=== PATIENT | male | born 1935 | race Caucasian/White ===

== ENCOUNTER → 2017-04-18 | Outpatient (CLI) | payer OTHER ==
[2017-04-18 16:58] LABS: Basophils # (auto) 0.1 uL; Basophils % (auto) 0.9 % (0.0-2.0); Eosinophils # (auto) 0.3 uL; Eosinophils % (auto) 4.2 % (0.0-7.0); Hematocrit 51.6 % (41.0-53.0); Hemoglobin 17.3 g/dL (13.5-17.5); Lymphocytes # (auto) 1.1 uL; Mean Corpuscular Hemoglobin 29.3 pg (28.0-32.0); Mean Corpuscular Hgb Conc. 33.6 g/dL (32.0-36.0); Mean Platelet Volume 7.9 fL (6.9-10.8); Monocytes # (auto) 0.9 uL; Monocytes % (auto) 11.4 % (0.0-12.0); Neutrophils # (auto) 5.2 uL; Neutrophils % (auto) 68.5 % (37.0-80.0); Nucleated Red Blood Cells % 0.1 %; Platelet Count (auto) 173 10^3/uL (140-450); Red Cell Distribution Width 13.9 % (11.8-14.3); White Blood Cell 7.6 10^3/uL (4.4-10.8)
[2017-04-18 17:11] LABS: INR 0.97 (0.9-1.15); Partial Thromboplastin Time 27.5 sec (22.64-33.71); Prothrombin Time 10.6 sec (9.37-12.3)
[2017-04-18 17:21] LABS: Albumin 3.5 g/dL (3.4-5.0); BUN/Creatinine Ratio 18.7; Calcium 9.3 mg/dL (8.5-10.1); Potassium 4.4 mmol/L (3.5-5.1)
[2017-04-18 17:24] LABS: Bilirubin, Total 0.6 mg/dL (0.2-1.0); Total Protein 7.7 g/dL (6.4-8.2)
[2017-04-18 17:34] LABS: Urine Bilirubin Negative (Negative); Urine Blood 1+ /uL (Negative); Urine Color Yellow (Yellow); Urine Glucose Normal (Normal); Urine Ketone Negative (Negative); Urine Mucus FEW (None Seen); Urine Nitrite Negative (Negative); Urine RBC 40 /hpf (0 - 3); Urine Urobilinogen Normal (Negative); Urine WBC Clumps PRESENT /hpf (None Seen); Urine pH 5.5 (5.0-8.0)
== END | disposition home or self-care (01) ==
LOC: LAB 16:50
PROVIDERS: ATTEND Internal Medicine
DX: I10 Essential (primary) hypertension (principal); E11.9 Type 2 diabetes mellitus without complications
CPT/HCPCS: 36415; 80053; 81001; 83036; 85025; 85610; 85730

== ENCOUNTER → 2017-05-10 | Outpatient (CLI) | payer OTHER ==
[~2017-05-10] MED LIST: ASPI81CH43 PO; FURO40TA4 PO; GLIM4TAB42 PO; LISI10TA6 PO; METF-370 PO; METO-158 PO; POTA20TA53 PO; PREG50CA PO
[2017-05-10 11:17] LABS: Basophils # (auto) 0.1 uL; Basophils % (auto) 1.2 % (0.0-2.0); Eosinophils # (auto) 0.4 uL; Hematocrit 50.1 % (41.0-53.0); Hemoglobin 16.7 g/dL (13.5-17.5); Lymphocytes # (auto) 1.3 uL; Lymphocytes % (auto) 18.3 % (10.0-50.0); Mean Corpuscular Hemoglobin 28.8 pg (28.0-32.0); Mean Corpuscular Hgb Conc. 33.3 g/dL (32.0-36.0); Mean Corpuscular Volume 86.4 fL (80.0-100.0); Monocytes # (auto) 0.8 uL; Monocytes % (auto) 11.3 % (0.0-12.0); Neutrophils # (auto) 4.6 uL; Neutrophils % (auto) 64.2 % (37.0-80.0); Platelet Count (auto) 209 10^3/uL (140-450); Red Cell Distribution Width 14.1 % (11.8-14.3); White Blood Cell 7.1 10^3/uL (4.4-10.8)
[2017-05-10 11:22] LABS: Urine Blood 1+ /uL (Negative); Urine Specific Gravity 1.016 (1.001-1.035)
[2017-05-10 11:30] LABS: INR 0.98 (0.9-1.15); Partial Thromboplastin Time 27.1 sec (22.64-33.71); Prothrombin Time 10.7 sec (9.37-12.3)
[2017-05-10 11:55] LABS: Albumin 3.3 g/dL (3.4-5.0); BUN/Creatinine Ratio 24.7; Bilirubin, Total 0.9 mg/dL (0.2-1.0); Potassium 4.4 mmol/L (3.5-5.1); Total Protein 7.3 g/dL (6.4-8.2)
== END | disposition home or self-care (01) ==
LOC: LAB 10:40
PROVIDERS: ATTEND Specialist
DX: Z01.812 Encounter for preprocedural laboratory examination (principal); D68.311 Acquired hemophilia; H25.12 Age-related nuclear cataract, left eye
CPT/HCPCS: 36415; 80053; 81003; 85025; 85610; 85730

== ENCOUNTER 2017-08-14 05:18 | Inpatient (IN) | payer OTHER ==
[~2017-08-14] VITALS: Ht 182.9 cm; Wt 94.5 kg
[2017-08-14] MEDS ORDERED: cloNIDine HCL 0.1 MG TAB ONE (05:33)
[2017-08-14] MEDS ORDERED: cloNIDine HCL 0.1 MG TAB PO ONE (05:45)
[2017-08-14 07:19] LABS: Basophils # (auto) 0 uL; Basophils % (auto) 0.4 % (0.0-2.0); Eosinophils # (auto) 0.1 uL; Eosinophils % (auto) 0.5 % (0.0-7.0); Hematocrit 45.6 % (41.0-53.0); Hemoglobin 15.1 g/dL (13.5-17.5); Lymphocytes # (auto) 0.6 uL; Mean Corpuscular Hemoglobin 29.2 pg (28.0-32.0); Mean Corpuscular Hgb Conc. 33.1 g/dL (32.0-36.0); Mean Corpuscular Volume 88.3 fL (80.0-100.0); Monocytes % (auto) 7.9 % (0.0-12.0); Neutrophils # (auto) 10.5 uL; Neutrophils % (auto) 86.2 % (37.0-80.0); Platelet Count (auto) 171 10^3/uL (140-450); Red Blood Cells 5.17 10^6/uL (4.5-5.90); Red Cell Distribution Width 14.2 % (11.8-14.3); White Blood Cell 12.2 10^3/uL (4.4-10.8)
[2017-08-14 07:32] LABS: INR 0.95 (0.9-1.15); Partial Thromboplastin Time 25.2 sec (22.64-33.71); Prothrombin Time 10.4 sec (9.37-12.3)
[2017-08-14 07:40] LABS: Albumin 3.2 g/dL (3.4-5.0); Anion Gap 6 (5-15); Blood Urea Nitrogen 18 mg/dL (7-18); Calcium 8.8 mg/dL (8.5-10.1); Carbon Dioxide 28 mmol/L (21-32); Chloride 103 mmol/L (98-107); Potassium 4.4 mmol/L (3.5-5.1); Sodium 137 mmol/L (136-145)
[2017-08-14] MEDS ORDERED: LIDOCAINE 2% JELLY 11ml (GLYDO) ONE (07:41)
[2017-08-14 07:42] LABS: Alanine Aminotransferase 27 U/L (16-61); Aspartate Aminotransferase 23 U/L (15-37); BUN/Creatinine Ratio 18.8; Bilirubin, Total 0.6 mg/dL (0.2-1.0); GFR African American 97 mL/min; GFR Non-African American 80 mL/min; Total Protein 6.5 g/dL (6.4-8.2)
[2017-08-14 07:45] LABS: Alkaline Phosphatase 104 U/L (45-117)
[2017-08-14 07:51] LABS: Glucose 405 mg/dL (74-106)
[2017-08-14 08:39] LABS: Urine Bacteria MOD /hpf (None Seen); Urine Blood 3+ /uL (Negative); Urine Specific Gravity 1.022 (1.001-1.035); Urine WBC 119 /hpf (0 - 3); Urine WBC Clumps PRESENT /hpf (None Seen)
[2017-08-14] MEDS ORDERED: MORPHINE SULFATE 4 MG/ML SYR/VIAL IV ONE (09:00)
[2017-08-14] MEDS ORDERED: ONDANSETRON HCL 4 MG/2 ML VIAL IV ONE (09:00)
[2017-08-14] MEDS ORDERED: LIDOCAINE 2% JELLY 11ml (GLYDO) UR ONE (09:00)
[2017-08-14] MEDS: cefTRIAXone 1GM/10ml IVPUSH 10 ML IV SCH (10:42)
[2017-08-14] MEDS ORDERED: cloNIDine HCL 0.1 MG TAB PO PRN (10:45)
[2017-08-14] MEDS ORDERED: INSULIN LANTUS (GLARGINE) 1 /0.01ml (100units/ml) SC ONE (10:45)
[2017-08-14] MEDS ORDERED: NITROGLYCERIN 0.4 MG SL TAB SL PRN (10:45)
[2017-08-14] MEDS ORDERED: ACETAMINOPHEN 325 MG TAB PO PRN (10:45)
[2017-08-14] MEDS ORDERED: MORPHINE SULFATE 4 MG/ML SYR/VIAL IV PRN (10:45)
[2017-08-14] MEDS ORDERED: TEMAZEPAM 15 MG CAP PO PRN (10:45)
[2017-08-14] MEDS ORDERED: ONDANSETRON HCL 4 MG/2 ML VIAL IV PRN (10:45)
[2017-08-14] MEDS ORDERED: DOCUSATE SOD 100 MG CAP PO PRN (10:45)
[2017-08-14] MEDS ORDERED: DEXTROSE (50%) 50ML SYRG IV PRN (10:45)
[2017-08-14] MEDS: InsuLIN REG 1unit/0.01ml Soln (100units/ml) SC SCH ×3 (11:44→22:32)
[2017-08-14] MEDS: ACCU-CHEK COMFORT CURVE STRIP VI SCH ×3 (11:44→22:32)
[2017-08-14] MEDS: Boost Glucose Control 8 Ounces PO SCH ×2 (12:17→17:33)
[2017-08-14] MEDS: SODIUM CHLOR 0.9% PF (SALINE LOCK) 10ML VIAL/SYR IV SCH ×2 (14:09→22:30)
[2017-08-14] MEDS: TAMSULOSIN HYDROCHLORIDE 0.4 MG CAP PO SCH (17:33)
[2017-08-14] MEDS: glyBURIDE 5 MG TAB PO SCH (17:34)
[2017-08-14] MEDS: MORPHINE SULFATE 4 MG/ML SYR/VIAL IV PRN (20:11)
[2017-08-14 20:30] VITALS: BP 107/60
[2017-08-14 22:00] VITALS: BP 107/60
[2017-08-14] MEDS: ASCORBIC ACID 500 MG TAB PO SCH (22:31)
[2017-08-14] MEDS: FAMOTIDINE 20 MG TAB PO SCH (22:31)
[2017-08-14] MEDS: CARVEDILOL 3.125 MG TAB PO SCH (22:31)
[2017-08-14] MEDS: INSULIN LANTUS (GLARGINE) 1 /0.01ml (100units/ml) SC SCH (22:32)
[2017-08-15] MEDS: MORPHINE SULFATE 4 MG/ML SYR/VIAL IV PRN ×3 (00:25→21:19)
[2017-08-15 05:00] VITALS: BP 123/58
[2017-08-15] MEDS: SODIUM CHLOR 0.9% PF (SALINE LOCK) 10ML VIAL/SYR IV SCH ×3 (06:09→21:24)
[2017-08-15 06:52] LABS: Basophils # (auto) 0 uL; Basophils % (auto) 0.3 % (0.0-2.0); Eosinophils # (auto) 0.1 uL; Eosinophils % (auto) 1.2 % (0.0-7.0); Hematocrit 41.9 % (41.0-53.0); Hemoglobin 14.1 g/dL (13.5-17.5); Lymphocytes # (auto) 0.8 uL; Mean Corpuscular Hemoglobin 30.2 pg (28.0-32.0); Mean Corpuscular Hgb Conc. 33.7 g/dL (32.0-36.0); Mean Corpuscular Volume 89.6 fL (80.0-100.0); Monocytes % (auto) 12.4 % (0.0-12.0); Neutrophils # (auto) 6.3 uL; Neutrophils % (auto) 76.1 % (37.0-80.0); Nucleated Red Blood Cells % 0.1 %; Platelet Count (auto) 170 10^3/uL (140-450); Red Blood Cells 4.67 10^6/uL (4.5-5.90); Red Cell Distribution Width 14.3 % (11.8-14.3); White Blood Cell 8.3 10^3/uL (4.4-10.8)
[2017-08-15] MEDS: InsuLIN REG 1unit/0.01ml Soln (100units/ml) SC SCH ×4 (07:00→22:00)
[2017-08-15] MEDS: ACCU-CHEK COMFORT CURVE STRIP VI SCH ×4 (07:00→22:00)
[2017-08-15] MEDS: glyBURIDE 5 MG TAB PO SCH ×2 (07:00→18:00)
[2017-08-15] MEDS: INSULIN LANTUS (GLARGINE) 1 /0.01ml (100units/ml) SC SCH ×2 (07:00→22:00)
[2017-08-15 07:18] LABS: Albumin 3.1 g/dL (3.4-5.0); BUN/Creatinine Ratio 23.2; Bilirubin, Total 0.7 mg/dL (0.2-1.0); Calcium 8.2 mg/dL (8.5-10.1); Potassium 3.9 mmol/L (3.5-5.1); Total Protein 6.5 g/dL (6.4-8.2)
[2017-08-15 08:00] VITALS: BP 105/54
[2017-08-15] MEDS: Boost Glucose Control 8 Ounces PO SCH ×3 (08:00→18:00)
[2017-08-15] MEDS: cefTRIAXone 1GM/10ml IVPUSH 10 ML IV SCH (09:43)
[2017-08-15] MEDS: CARVEDILOL 3.125 MG TAB PO SCH ×3 (10:00→22:00)
[2017-08-15] MEDS: ZINC SULFATE 220 MG CAP PO SCH (10:09)
[2017-08-15] MEDS: FAMOTIDINE 20 MG TAB PO SCH ×3 (10:10→22:00)
[2017-08-15] MEDS: ASCORBIC ACID 500 MG TAB PO SCH ×3 (10:10→22:00)
[2017-08-15] MEDS: MULTIPLE VITAMIN TAB PO SCH (10:10)
[2017-08-15] MEDS: SODIUM CHLORIDE 0.9% 1,000 ML IV SCH ×2 (11:15→21:23)
[2017-08-15 12:00] VITALS: BP 138/65
[2017-08-15] MEDS: AMOXICILLIN/CLAVUL 875 MG TAB PO SCH ×3 (13:17→22:00)
[2017-08-15] MEDS ORDERED: VANCOMYCIN 1GM/250ML 250 ML IV SCH ×2 (15:00→21:00)
[2017-08-15 17:00] VITALS: BP 140/76
[2017-08-15] MEDS: TAMSULOSIN HYDROCHLORIDE 0.4 MG CAP PO SCH (18:00)
[2017-08-15] MEDS ORDERED: ASPI81CH43 PO (20:11)
[2017-08-15] MEDS ORDERED: GLIM4TAB42 PO (20:11)
[2017-08-15] MEDS ORDERED: POTA20TA53 PO (20:11)
[2017-08-15] MEDS ORDERED: METF-370 PO (20:11)
[2017-08-15] MEDS ORDERED: LISI10TA6 PO (20:11)
[2017-08-15] MEDS ORDERED: FURO40TA4 PO (20:11)
[2017-08-15] MEDS ORDERED: PREG50CA PO (20:11)
[2017-08-15] MEDS ORDERED: METO-158 PO (20:11)
[2017-08-15] MEDS: HYDROcodone-ACET 5/325MG TAB PO PRN (20:12)
[2017-08-15 22:00] VITALS: BP 108/65
[2017-08-15] MEDS ORDERED: LORazepam 2MG/ML-1ML VIAL IV ONE (22:30)
[2017-08-15] MEDS ORDERED: diphenhdrAMINE HCL 50 MG/1 ML VL IV ONE (22:30)
[2017-08-16 06:20] VITALS: BP 124/63
[2017-08-16] MEDS: SODIUM CHLOR 0.9% PF (SALINE LOCK) 10ML VIAL/SYR IV SCH ×3 (06:45→22:19)
[2017-08-16] MEDS: InsuLIN REG 1unit/0.01ml Soln (100units/ml) SC SCH ×4 (06:46→22:46)
[2017-08-16] MEDS: INSULIN LANTUS (GLARGINE) 1 /0.01ml (100units/ml) SC SCH ×2 (06:46→22:00)
[2017-08-16] MEDS: ACCU-CHEK COMFORT CURVE STRIP VI SCH ×4 (06:46→22:00)
[2017-08-16] MEDS: glyBURIDE 5 MG TAB PO SCH ×2 (06:46→18:00)
[2017-08-16 07:07] LABS: Calcium 8.8 mg/dL (8.5-10.1); Potassium 3.8 mmol/L (3.5-5.1)
[2017-08-16 07:10] LABS: BUN/Creatinine Ratio 30.8
[2017-08-16] MEDS: Boost Glucose Control 8 Ounces PO SCH ×3 (08:00→18:00)
[2017-08-16 09:00] VITALS: BP 115/59
[2017-08-16] MEDS ORDERED: MIDAZOLAM HCL 1MG/1ML-2 ML VIAL ONE ×2 (09:19→13:19)
[2017-08-16] MEDS ORDERED: LIDOCAINE W/ EPINEPHRINE 2% INJ 20ML VIAL ONE (09:19)
[2017-08-16] MEDS ORDERED: ceFAZolin 1GM/100ML 50 ML IV ONE ×2 (09:26→11:41)
[2017-08-16] MEDS ORDERED: BUPIVACAINE 0.25% INJ 50ML VIAL ONE (09:32)
[2017-08-16] MEDS: ZINC SULFATE 220 MG CAP PO SCH (10:00)
[2017-08-16] MEDS: AMOXICILLIN/CLAVUL 875 MG TAB PO SCH ×2 (10:00→22:19)
[2017-08-16] MEDS: CARVEDILOL 3.125 MG TAB PO SCH ×2 (10:00→22:19)
[2017-08-16] MEDS: FAMOTIDINE 20 MG TAB PO SCH ×2 (10:00→22:19)
[2017-08-16] MEDS: ASCORBIC ACID 500 MG TAB PO SCH ×2 (10:00→22:17)
[2017-08-16] MEDS: MULTIPLE VITAMIN TAB PO SCH (10:00)
[2017-08-16] MEDS ORDERED: SUCCINYLCHOLINE CHLORIDE 20 MG/ML 10ML VIAL IV ONE (10:46)
[2017-08-16] MEDS ORDERED: ROCURONIUM 10MG/ML 10ML VIAL IV ONE (10:49)
[2017-08-16 11:02] LABS: Basophils # (auto) 0.1 uL; Basophils % (auto) 0.9 % (0.0-2.0); Eosinophils # (auto) 0.2 uL; Eosinophils % (auto) 1.9 % (0.0-7.0); Hematocrit 40.1 % (41.0-53.0); Hemoglobin 13.2 g/dL (13.5-17.5); Lymphocytes # (auto) 0.8 uL; Lymphocytes % (auto) 9.9 % (10.0-50.0); Mean Corpuscular Hemoglobin 28.6 pg (28.0-32.0); Mean Corpuscular Volume 86.8 fL (80.0-100.0); Monocytes % (auto) 12.3 % (0.0-12.0); Neutrophils # (auto) 6.3 uL; Platelet Count (auto) 142 10^3/uL (140-450); Red Blood Cells 4.62 10^6/uL (4.5-5.90); Red Cell Distribution Width 14.2 % (11.8-14.3); White Blood Cell 8.4 10^3/uL (4.4-10.8)
[2017-08-16] MEDS ORDERED: fentaNYL CITRATE 100 MCG/2 ML VL ONE ×2 (11:34→13:14)
[2017-08-16] MEDS ORDERED: NALOXONE HCL 0.4 MG/ML VIAL IV PRN (11:45)
[2017-08-16] MEDS ORDERED: MORPHINE SULFATE 4 MG/ML SYR/VIAL IV PRN (11:45)
[2017-08-16] MEDS ORDERED: ACCU-CHEK COMFORT CURVE STRIP VI ONE (11:45)
[2017-08-16] MEDS ORDERED: ONDANSETRON HCL 4 MG/2 ML VIAL IV ONE (11:45)
[2017-08-16] MEDS ORDERED: hydrALAZINE HCL 20 MG/ML VL IV PRN (11:45)
[2017-08-16] MEDS: fentaNYL CITRATE 100 MCG/2 ML VL IV PRN ×4 (13:17→14:14)
[2017-08-16] MEDS: MIDAZOLAM HCL 1MG/1ML-2 ML VIAL IV ONE ×4 (13:20→14:15)
[2017-08-16] MEDS: LORazepam 2MG/ML-1ML VIAL IV PRN (15:14)
[2017-08-16] MEDS: VANCOMYCIN 1GM/250ML 250 ML IV SCH (15:48)
[2017-08-16] MEDS: SODIUM CHLORIDE 0.9% 1,000 ML IV SCH ×2 (15:49→17:15)
[2017-08-16 17:00] VITALS: BP 151/69
[2017-08-16] MEDS: TAMSULOSIN HYDROCHLORIDE 0.4 MG CAP PO SCH (18:00)
[2017-08-16 22:19] VITALS: BP 138/73
[2017-08-17] MEDS: SODIUM CHLORIDE 0.9% 1,000 ML IV SCH ×3 (04:02→23:15)
[2017-08-17] MEDS: VANCOMYCIN 1GM/250ML 250 ML IV SCH (04:02)
[2017-08-17 05:14] VITALS: BP 132/68
[2017-08-17] MEDS: SODIUM CHLOR 0.9% PF (SALINE LOCK) 10ML VIAL/SYR IV SCH ×3 (05:32→22:21)
[2017-08-17 06:23] LABS: Basophils # (auto) 0 uL; Basophils % (auto) 0.3 % (0.0-2.0); Eosinophils # (auto) 0.1 uL; Eosinophils % (auto) 1.5 % (0.0-7.0); Hematocrit 37.4 % (41.0-53.0); Hemoglobin 12.7 g/dL (13.5-17.5); Lymphocytes # (auto) 0.7 uL; Lymphocytes % (auto) 8.6 % (10.0-50.0); Mean Corpuscular Hemoglobin 30.2 pg (28.0-32.0); Mean Corpuscular Volume 88.8 fL (80.0-100.0); Monocytes # (auto) 1.2 uL; Monocytes % (auto) 15.4 % (0.0-12.0); Neutrophils # (auto) 5.8 uL; Neutrophils % (auto) 74.2 % (37.0-80.0); Nucleated Red Blood Cells % 0.1 %; Platelet Count (auto) 198 10^3/uL (140-450); Red Blood Cells 4.21 10^6/uL (4.5-5.90); Red Cell Distribution Width 14.1 % (11.8-14.3); White Blood Cell 7.8 10^3/uL (4.4-10.8)
[2017-08-17] MEDS: ACCU-CHEK COMFORT CURVE STRIP VI SCH ×4 (06:23→22:17)
[2017-08-17] MEDS: glyBURIDE 5 MG TAB PO SCH ×2 (06:23→17:31)
[2017-08-17] MEDS: InsuLIN REG 1unit/0.01ml Soln (100units/ml) SC SCH ×4 (06:23→22:20)
[2017-08-17] MEDS: INSULIN LANTUS (GLARGINE) 1 /0.01ml (100units/ml) SC SCH (06:23)
[2017-08-17 06:49] LABS: BUN/Creatinine Ratio 29.7; Calcium 8.4 mg/dL (8.5-10.1); Potassium 3.8 mmol/L (3.5-5.1)
[2017-08-17 08:00] VITALS: BP 135/66
[2017-08-17] MEDS: Boost Glucose Control 8 Ounces PO SCH ×3 (08:00→18:42)
[2017-08-17 08:08] VITALS: BP 135/66
[2017-08-17] MEDS: ZINC SULFATE 220 MG CAP PO SCH (10:56)
[2017-08-17] MEDS: ASCORBIC ACID 500 MG TAB PO SCH ×2 (10:56→22:18)
[2017-08-17] MEDS: FAMOTIDINE 20 MG TAB PO SCH ×2 (10:57→22:19)
[2017-08-17] MEDS: ENOXAPARIN SOD 40 MG/0.4 ML SYRINGE SC SCH (10:57)
[2017-08-17] MEDS: MULTIPLE VITAMIN TAB PO SCH (10:57)
[2017-08-17] MEDS: CARVEDILOL 3.125 MG TAB PO SCH ×2 (10:58→22:19)
[2017-08-17] MEDS: ceFAZolin 1GM/100ML 50 ML IV SCH ×2 (12:12→17:30)
[2017-08-17 13:20] VITALS: BP 140/67
[2017-08-17] MEDS: HYDROcodone-ACET 5/325MG TAB PO PRN ×2 (14:27→20:16)
[2017-08-17] MEDS: TAMSULOSIN HYDROCHLORIDE 0.4 MG CAP PO SCH (17:30)
[2017-08-17 17:44] VITALS: BP 147/75
[2017-08-17 22:00] VITALS: BP 153/73
[2017-08-17] MEDS ORDERED: INSULIN LANTUS (GLARGINE) 1 /0.01ml (100units/ml) SC SCH (22:00)
[2017-08-18] MEDS: ceFAZolin 1GM/100ML 50 ML IV SCH ×4 (00:16→18:06)
[2017-08-18] MEDS: HYDROcodone-ACET 5/325MG TAB PO PRN ×3 (03:26→20:25)
[2017-08-18 05:00] VITALS: BP 146/76
[2017-08-18] MEDS: glyBURIDE 5 MG TAB PO SCH ×2 (06:25→18:07)
[2017-08-18] MEDS: SODIUM CHLOR 0.9% PF (SALINE LOCK) 10ML VIAL/SYR IV SCH ×3 (06:25→22:05)
[2017-08-18] MEDS: ACCU-CHEK COMFORT CURVE STRIP VI SCH ×4 (06:26→22:23)
[2017-08-18] MEDS: InsuLIN REG 1unit/0.01ml Soln (100units/ml) SC SCH ×3 (06:26→22:23)
[2017-08-18 06:53] LABS: Potassium 3.9 mmol/L (3.5-5.1)
[2017-08-18 06:54] LABS: Basophils # (auto) 0.1 uL; Basophils % (auto) 0.9 % (0.0-2.0); Eosinophils # (auto) 0.4 uL; Eosinophils % (auto) 4.2 % (0.0-7.0); Hematocrit 34.7 % (41.0-53.0); Hemoglobin 11.6 g/dL (13.5-17.5); Lymphocytes # (auto) 0.7 uL; Lymphocytes % (auto) 8.6 % (10.0-50.0); Mean Corpuscular Hemoglobin 28.9 pg (28.0-32.0); Mean Corpuscular Hgb Conc. 33.4 g/dL (32.0-36.0); Mean Corpuscular Volume 86.6 fL (80.0-100.0); Monocytes # (auto) 1.4 uL; Monocytes % (auto) 16.7 % (0.0-12.0); Neutrophils # (auto) 5.8 uL; Neutrophils % (auto) 69.6 % (37.0-80.0); Nucleated Red Blood Cells % 0.1 %; Platelet Count (auto) 197 10^3/uL (140-450); Red Blood Cells 4.01 10^6/uL (4.5-5.90); Red Cell Distribution Width 13.8 % (11.8-14.3); White Blood Cell 8.3 10^3/uL (4.4-10.8)
[2017-08-18 06:59] LABS: BUN/Creatinine Ratio 37.3
[2017-08-18] MEDS: Boost Glucose Control 8 Ounces PO SCH ×3 (08:49→18:06)
[2017-08-18] MEDS: ENOXAPARIN SOD 40 MG/0.4 ML SYRINGE SC SCH (09:10)
[2017-08-18] MEDS: FAMOTIDINE 20 MG TAB PO SCH ×2 (09:10→21:59)
[2017-08-18] MEDS: MULTIPLE VITAMIN TAB PO SCH (09:11)
[2017-08-18] MEDS: ZINC SULFATE 220 MG CAP PO SCH (09:11)
[2017-08-18] MEDS: ASCORBIC ACID 500 MG TAB PO SCH ×2 (09:11→21:59)
[2017-08-18] MEDS: CARVEDILOL 3.125 MG TAB PO SCH ×2 (09:15→21:58)
[2017-08-18] MEDS: SODIUM CHLORIDE 0.9% 1,000 ML IV SCH ×2 (12:34→19:15)
[2017-08-18] MEDS ORDERED: DEXTROSE (50%) 50ML SYRG IV ONE (12:45)
[2017-08-18] MEDS ORDERED: ceFAZolin 1GM/100ML 50 ML IV SCH (18:00)
[2017-08-18] MEDS: TAMSULOSIN HYDROCHLORIDE 0.4 MG CAP PO SCH (18:06)
[2017-08-18 21:30] VITALS: BP 150/77
[2017-08-18] MEDS ORDERED: INSULIN LANTUS (GLARGINE) 1 /0.01ml (100units/ml) SC SCH (22:00)
[2017-08-19 05:00] VITALS: BP 166/86
[2017-08-19] MEDS: SODIUM CHLORIDE 0.9% 1,000 ML IV SCH ×2 (05:15→15:56)
[2017-08-19] MEDS: SODIUM CHLOR 0.9% PF (SALINE LOCK) 10ML VIAL/SYR IV SCH ×3 (06:00→22:25)
[2017-08-19] MEDS: ceFAZolin 1GM/100ML 50 ML IV SCH ×4 (06:00→18:12)
[2017-08-19] MEDS: glyBURIDE 5 MG TAB PO SCH ×2 (06:38→18:00)
[2017-08-19] MEDS: ACCU-CHEK COMFORT CURVE STRIP VI SCH ×4 (06:38→22:27)
[2017-08-19] MEDS: InsuLIN REG 1unit/0.01ml Soln (100units/ml) SC SCH ×4 (06:38→22:00)
[2017-08-19 07:48] LABS: Basophils # (auto) 0.1 uL; Basophils % (auto) 0.7 % (0.0-2.0); Eosinophils # (auto) 0.2 uL; Eosinophils % (auto) 3.1 % (0.0-7.0); Hemoglobin 11.7 g/dL (13.5-17.5); Lymphocytes # (auto) 0.7 uL; Lymphocytes % (auto) 8.6 % (10.0-50.0); Mean Corpuscular Hemoglobin 29.7 pg (28.0-32.0); Mean Corpuscular Hgb Conc. 33.4 g/dL (32.0-36.0); Monocytes # (auto) 1.1 uL; Monocytes % (auto) 14.8 % (0.0-12.0); Neutrophils # (auto) 5.6 uL; Neutrophils % (auto) 72.8 % (37.0-80.0); Nucleated Red Blood Cells % 0.1 %; Platelet Count (auto) 259 10^3/uL (140-450); Red Blood Cells 3.94 10^6/uL (4.5-5.90); Red Cell Distribution Width 13.8 % (11.8-14.3); White Blood Cell 7.6 10^3/uL (4.4-10.8)
[2017-08-19 07:51] VITALS: BP 164/79
[2017-08-19 08:05] LABS: BUN/Creatinine Ratio 25.9; Calcium 8.5 mg/dL (8.5-10.1); Potassium 3.7 mmol/L (3.5-5.1)
[2017-08-19] MEDS: Boost Glucose Control 8 Ounces PO SCH ×3 (08:33→18:00)
[2017-08-19] MEDS: ENOXAPARIN SOD 40 MG/0.4 ML SYRINGE SC SCH (09:52)
[2017-08-19] MEDS: FAMOTIDINE 20 MG TAB PO SCH ×2 (09:52→22:26)
[2017-08-19] MEDS: MULTIPLE VITAMIN TAB PO SCH (09:52)
[2017-08-19] MEDS: PREGABALIN 25 MG CAP PO SCH ×2 (09:52→22:25)
[2017-08-19] MEDS: ZINC SULFATE 220 MG CAP PO SCH (09:52)
[2017-08-19] MEDS: ASPirin-EC 81 mg tab PO SCH (09:52)
[2017-08-19] MEDS: ASCORBIC ACID 500 MG TAB PO SCH ×2 (09:53→22:26)
[2017-08-19] MEDS ORDERED: LISINOPRIL 10 MG TAB PO SCH (10:00)
[2017-08-19] MEDS ORDERED: METOPROLOL SUCCINATE XL 50 MG TAB PO SCH (10:00)
[2017-08-19] MEDS: DEXTROSE (50%) 50ML SYRG IV PRN ×2 (12:53→18:24)
[2017-08-19 13:00] VITALS: BP 150/86
[2017-08-19 17:00] VITALS: BP 158/66
[2017-08-19] MEDS ORDERED: metFORMIN HYDROCHLORIDE 500 MG TAB PO SCH (18:00)
[2017-08-19] MEDS: TAMSULOSIN HYDROCHLORIDE 0.4 MG CAP PO SCH (18:00)
[2017-08-19] MEDS ORDERED: MORPHINE SULFATE 8mg/ml INJ SDV IV PRN ×2 (22:00)
[2017-08-20] VITALS (47 sets, daily range): BP systolic 95–187; BP diastolic 43–99
[2017-08-20] MEDS: SODIUM CHLORIDE 0.9% 1,000 ML IV SCH ×3 (01:15→19:29)
[2017-08-20] MEDS ORDERED: ETOMIDATE (2MG/ML) 20ML VIAL IV ONE (05:22)
[2017-08-20] MEDS ORDERED: SUCCINYLCHOLINE CHLORIDE 20 MG/ML 10ML VIAL IV ONE (05:23)
[2017-08-20] MEDS ORDERED: LABETALOL HCL 5 MG/ML ML 20ML VIAL IV ONE (05:45)
[2017-08-20] MEDS: SODIUM CHLOR 0.9% PF (SALINE LOCK) 10ML VIAL/SYR IV SCH ×3 (06:00→21:57)
[2017-08-20 06:07] LABS: Basophils # (auto) 0.1 uL; Basophils % (auto) 0.5 % (0.0-2.0); Eosinophils # (auto) 0.1 uL; Eosinophils % (auto) 0.5 % (0.0-7.0); Hematocrit 32.4 % (41.0-53.0); Hemoglobin 10.7 g/dL (13.5-17.5); Lymphocytes # (auto) 1.4 uL; Lymphocytes % (auto) 12.2 % (10.0-50.0); Mean Corpuscular Hemoglobin 29.7 pg (28.0-32.0); Mean Corpuscular Hgb Conc. 33.1 g/dL (32.0-36.0); Mean Corpuscular Volume 89.6 fL (80.0-100.0); Monocytes # (auto) 1.5 uL; Monocytes % (auto) 13.1 % (0.0-12.0); Neutrophils # (auto) 8.7 uL; Neutrophils % (auto) 73.7 % (37.0-80.0); Nucleated Red Blood Cells % 0.1 %; Platelet Count (auto) 229 10^3/uL (140-450); Red Blood Cells 3.61 10^6/uL (4.5-5.90); White Blood Cell 11.8 10^3/uL (4.4-10.8)
[2017-08-20] MEDS ORDERED: NOREPINEPHRINE 16 MG/500ML KIT 500 ML IV ONE (06:11)
[2017-08-20] MEDS: NOREPINEPHRINE 16 MG/500ML KIT 500 ML IV SCH (06:25)
[2017-08-20 06:28] LABS: Albumin 2.3 g/dL (3.4-5.0); BUN/Creatinine Ratio 20.8; Calcium 9.4 mg/dL (8.5-10.1); Potassium 3.8 mmol/L (3.5-5.1)
[2017-08-20 06:31] LABS: Bilirubin, Total 0.7 mg/dL (0.2-1.0); Total Protein 5.8 g/dL (6.4-8.2)
[2017-08-20] MEDS: ceFAZolin 1GM/100ML 50 ML IV SCH ×5 (06:48→23:41)
[2017-08-20] MEDS ORDERED: PROPOFOL 100 ML IV ONE ×3 (06:54→16:09)
[2017-08-20] MEDS: InsuLIN REG 1unit/0.01ml Soln (100units/ml) SC SCH ×4 (07:00→21:59)
[2017-08-20] MEDS: ACCU-CHEK COMFORT CURVE STRIP VI SCH ×4 (07:00→21:57)
[2017-08-20] MEDS: Boost Glucose Control 8 Ounces PO SCH ×3 (08:00→18:00)
[2017-08-20] MEDS: LEVOFLOXACIN 750MG 150 ML IV SCH (09:10)
[2017-08-20] MEDS: ASPirin-EC 81 mg tab PO SCH (11:50)
[2017-08-20] MEDS: MULTIPLE VITAMIN TAB PO SCH (11:50)
[2017-08-20] MEDS: ASCORBIC ACID 500 MG TAB PO SCH ×2 (11:51→21:55)
[2017-08-20] MEDS: PREGABALIN 25 MG CAP PO SCH ×2 (11:51→21:54)
[2017-08-20] MEDS: ENOXAPARIN SOD 40 MG/0.4 ML SYRINGE SC SCH (11:53)
[2017-08-20] MEDS: METOPROLOL TARTRATE 25 MG TAB PO SCH ×2 (11:57→21:55)
[2017-08-20] MEDS: ZINC SULFATE 220 MG CAP PO SCH (12:04)
[2017-08-20] MEDS: FAMOTIDINE 20 MG TAB PO SCH ×2 (12:04→21:54)
[2017-08-20] MEDS: PROPOFOL 100 ML IV SCH ×2 (16:36→20:38)
[2017-08-20] MEDS ORDERED: AMIODARONE HCL (50 MG/ ML) 3 ML VIAL IV ONE (16:50)
[2017-08-20] MEDS ORDERED: EPINEPHrine HCL 1 MG/10 ML SYRG IV ONE (16:50)
[2017-08-20] MEDS ORDERED: SODIUM BICARBONATE 8.4% INJ 50ML SYRINGE IV ONE (16:50)
[2017-08-20] MEDS ORDERED: CALCIUM CHLOR(10%) 100MG/ML 10ML SYRINGE IV ONE (16:50)
[2017-08-20] MEDS: TAMSULOSIN HYDROCHLORIDE 0.4 MG CAP PO SCH (19:28)
[2017-08-21] VITALS (101 sets, daily range): BP systolic 89–150; BP diastolic 37–80
[2017-08-21] MEDS: PROPOFOL 100 ML IV SCH ×5 (00:48→22:03)
[2017-08-21 04:50] LABS: BUN/Creatinine Ratio 22.8; Calcium 7.6 mg/dL (8.5-10.1); Potassium 3.6 mmol/L (3.5-5.1)
[2017-08-21 04:52] LABS: Basophils # (auto) 0 uL; Eosinophils # (auto) 0.2 uL; Lymphocytes # (auto) 0.7 uL; Monocytes # (auto) 1.2 uL; Monocytes % (auto) 15.6 % (0.0-12.0); Neutrophils # (auto) 5.7 uL; Nucleated Red Blood Cells % 0.1 %; Red Cell Distribution Width 13.9 % (11.8-14.3); White Blood Cell 7.9 10^3/uL (4.4-10.8)
[2017-08-21 04:55] LABS: Basophils % (auto) 0.6 % (0.0-2.0); Eosinophils % (auto) 2.1 % (0.0-7.0); Hemoglobin 9.4 g/dL (13.5-17.5); Lymphocytes % (auto) 8.7 % (10.0-50.0); Mean Corpuscular Hemoglobin 33.3 pg (28.0-32.0); Mean Corpuscular Hgb Conc. 36.1 g/dL (32.0-36.0); Mean Corpuscular Volume 92.4 fL (80.0-100.0); Platelet Count (auto) 210 10^3/uL (140-450); Red Blood Cells 2.82 10^6/uL (4.5-5.90)
[2017-08-21] MEDS: NOREPINEPHRINE 16 MG/500ML KIT 500 ML IV SCH (06:15)
[2017-08-21] MEDS: SODIUM CHLOR 0.9% PF (SALINE LOCK) 10ML VIAL/SYR IV SCH ×3 (06:26→22:04)
[2017-08-21] MEDS: ceFAZolin 1GM/100ML 50 ML IV SCH ×3 (06:26→17:41)
[2017-08-21] MEDS: ACCU-CHEK COMFORT CURVE STRIP VI SCH ×4 (06:26→22:05)
[2017-08-21] MEDS: InsuLIN REG 1unit/0.01ml Soln (100units/ml) SC SCH ×4 (06:27→22:25)
[2017-08-21] MEDS: LEVOFLOXACIN 750MG 150 ML IV SCH (07:29)
[2017-08-21] MEDS: D5W/SOD CHLO 0.9% 1,000 ML IV SCH ×2 (07:50→22:03)
[2017-08-21] MEDS: Boost Glucose Control 8 Ounces PO SCH (08:20)
[2017-08-21] MEDS: ASCORBIC ACID 500 MG TAB PO SCH ×2 (09:52→22:04)
[2017-08-21] MEDS: PREGABALIN 25 MG CAP PO SCH ×2 (09:53→22:04)
[2017-08-21] MEDS: ZINC SULFATE 220 MG CAP PO SCH (09:53)
[2017-08-21] MEDS: METOPROLOL TARTRATE 25 MG TAB PO SCH ×2 (09:54→22:00)
[2017-08-21] MEDS: MULTIPLE VITAMIN TAB PO SCH (09:54)
[2017-08-21] MEDS: ENOXAPARIN SOD 40 MG/0.4 ML SYRINGE SC SCH (09:55)
[2017-08-21] MEDS: FAMOTIDINE 20 MG TAB PO SCH ×2 (09:56→22:04)
[2017-08-21] MEDS: ASPirin-EC 81 mg tab PO SCH (09:56)
[2017-08-21] MEDS ORDERED: Diabetisource AC 1 Liter GT SCH (11:00)
[2017-08-21] MEDS: TAMSULOSIN HYDROCHLORIDE 0.4 MG CAP PO SCH (17:57)
[2017-08-22] VITALS (75 sets, daily range): BP systolic 111–155; BP diastolic 45–96
[2017-08-22] MEDS: ceFAZolin 1GM/100ML 50 ML IV SCH ×4 (00:29→17:52)
[2017-08-22] MEDS: PROPOFOL 100 ML IV SCH ×3 (03:35→21:01)
[2017-08-22 03:58] LABS: Basophils # (auto) 0.1 uL; Basophils % (auto) 0.6 % (0.0-2.0); Eosinophils # (auto) 0.4 uL; Eosinophils % (auto) 4.6 % (0.0-7.0); Hematocrit 28.1 % (41.0-53.0); Hemoglobin 9.3 g/dL (13.5-17.5); Lymphocytes # (auto) 0.9 uL; Lymphocytes % (auto) 10.7 % (10.0-50.0); Mean Corpuscular Hemoglobin 29.4 pg (28.0-32.0); Mean Corpuscular Hgb Conc. 33.3 g/dL (32.0-36.0); Mean Corpuscular Volume 88.1 fL (80.0-100.0); Monocytes # (auto) 1.5 uL; Neutrophils # (auto) 5.8 uL; Neutrophils % (auto) 67.1 % (37.0-80.0); Platelet Count (auto) 255 10^3/uL (140-450); Red Blood Cells 3.18 10^6/uL (4.5-5.90); Red Cell Distribution Width 14.3 % (11.8-14.3); White Blood Cell 8.6 10^3/uL (4.4-10.8)
[2017-08-22 04:20] LABS: BUN/Creatinine Ratio 19.3; Calcium 7.7 mg/dL (8.5-10.1); Potassium 3.5 mmol/L (3.5-5.1)
[2017-08-22] MEDS: SODIUM CHLOR 0.9% PF (SALINE LOCK) 10ML VIAL/SYR IV SCH ×3 (05:57→22:15)
[2017-08-22] MEDS: NOREPINEPHRINE 16 MG/500ML KIT 500 ML IV SCH (06:15)
[2017-08-22] MEDS: LEVOFLOXACIN 750MG 150 ML IV SCH (06:34)
[2017-08-22] MEDS: ACCU-CHEK COMFORT CURVE STRIP VI SCH ×4 (06:34→22:15)
[2017-08-22] MEDS: InsuLIN REG 1unit/0.01ml Soln (100units/ml) SC SCH ×4 (06:34→22:39)
[2017-08-22] MEDS: FAMOTIDINE 20 MG TAB PO SCH ×2 (11:20→22:15)
[2017-08-22] MEDS: ASPirin-EC 81 mg tab PO SCH (11:20)
[2017-08-22] MEDS: ZINC SULFATE 220 MG CAP PO SCH (11:20)
[2017-08-22] MEDS: PREGABALIN 25 MG CAP PO SCH ×2 (11:21→22:14)
[2017-08-22] MEDS: ASCORBIC ACID 500 MG TAB PO SCH ×2 (11:21→22:15)
[2017-08-22] MEDS: MULTIPLE VITAMIN TAB PO SCH (11:21)
[2017-08-22] MEDS: ENOXAPARIN SOD 30 MG/0.3 ML SYRINGE SC SCH (11:35)
[2017-08-22] MEDS: METOPROLOL TARTRATE 25 MG TAB PO SCH ×2 (11:35→22:09)
[2017-08-22] MEDS: D5W/SOD CHLO 0.9% 1,000 ML IV SCH ×2 (12:00→18:16)
[2017-08-22 14:21] LABS: Creatinine, Urine 101 mg/dL (30.0-125.0); Sodium Urine 29 mmol/L (40-220)
[2017-08-22] MEDS: TAMSULOSIN HYDROCHLORIDE 0.4 MG CAP PO SCH (17:52)
[2017-08-23] VITALS (76 sets, daily range): BP systolic 113–154; BP diastolic 40–72
[2017-08-23] MEDS: ceFAZolin 1GM/100ML 50 ML IV SCH ×3 (00:09→12:20)
[2017-08-23 03:57] LABS: Basophils # (auto) 0 uL; Basophils % (auto) 0.4 % (0.0-2.0); Eosinophils # (auto) 0.2 uL; Eosinophils % (auto) 2.9 % (0.0-7.0); Hematocrit 27.2 % (41.0-53.0); Hemoglobin 9.2 g/dL (13.5-17.5); Lymphocytes # (auto) 0.6 uL; Mean Corpuscular Hgb Conc. 33.9 g/dL (32.0-36.0); Mean Corpuscular Volume 91.6 fL (80.0-100.0); Monocytes # (auto) 1.1 uL; Monocytes % (auto) 14.7 % (0.0-12.0); Neutrophils # (auto) 5.4 uL; Platelet Count (auto) 267 10^3/uL (140-450); Red Blood Cells 2.97 10^6/uL (4.5-5.90); Red Cell Distribution Width 14.3 % (11.8-14.3); White Blood Cell 7.3 10^3/uL (4.4-10.8)
[2017-08-23 04:19] LABS: BUN/Creatinine Ratio 18.4; Calcium 7.7 mg/dL (8.5-10.1); Potassium 3.8 mmol/L (3.5-5.1)
[2017-08-23] MEDS: PROPOFOL 100 ML IV SCH ×2 (05:00→07:14)
[2017-08-23] MEDS: SODIUM CHLOR 0.9% PF (SALINE LOCK) 10ML VIAL/SYR IV SCH ×3 (06:08→21:32)
[2017-08-23] MEDS: ACCU-CHEK COMFORT CURVE STRIP VI SCH ×4 (06:08→21:33)
[2017-08-23] MEDS: NOREPINEPHRINE 16 MG/500ML KIT 500 ML IV SCH (06:15)
[2017-08-23] MEDS: InsuLIN REG 1unit/0.01ml Soln (100units/ml) SC SCH ×4 (07:12→21:32)
[2017-08-23] MEDS: D5W/SOD CHLO 0.9% 1,000 ML IV SCH (07:12)
[2017-08-23] MEDS: LEVOFLOXACIN 750MG 150 ML IV SCH (07:12)
[2017-08-23] MEDS: ASPirin-EC 81 mg tab PO SCH (10:22)
[2017-08-23] MEDS: ZINC SULFATE 220 MG CAP PO SCH (10:22)
[2017-08-23] MEDS: PREGABALIN 25 MG CAP PO SCH ×2 (10:23→21:31)
[2017-08-23] MEDS: MULTIPLE VITAMIN TAB PO SCH (10:23)
[2017-08-23] MEDS: FAMOTIDINE 20 MG TAB PO SCH ×2 (10:23→21:32)
[2017-08-23] MEDS: ASCORBIC ACID 500 MG TAB PO SCH ×2 (10:23→21:32)
[2017-08-23] MEDS: METOPROLOL TARTRATE 25 MG TAB PO SCH ×2 (10:23→21:31)
[2017-08-23] MEDS: ENOXAPARIN SOD 30 MG/0.3 ML SYRINGE SC SCH (10:23)
[2017-08-23] MEDS: TAMSULOSIN HYDROCHLORIDE 0.4 MG CAP PO SCH (18:05)
[2017-08-23] MEDS: ATORVASTATIN 20 MG TAB PO SCH (21:32)
[2017-08-23] MEDS: HYDROcodone-ACET 5/325MG TAB PO PRN (22:47)
[2017-08-24] VITALS (15 sets, daily range): BP systolic 134–153; BP diastolic 55–77
[2017-08-24 03:58] LABS: Basophils # (auto) 0 uL; Basophils % (auto) 0.7 % (0.0-2.0); Eosinophils # (auto) 0.2 uL; Eosinophils % (auto) 3.4 % (0.0-7.0); Hematocrit 28.8 % (41.0-53.0); Hemoglobin 9.5 g/dL (13.5-17.5); Lymphocytes # (auto) 0.8 uL; Lymphocytes % (auto) 10.4 % (10.0-50.0); Mean Corpuscular Hemoglobin 29.9 pg (28.0-32.0); Mean Corpuscular Hgb Conc. 32.8 g/dL (32.0-36.0); Mean Corpuscular Volume 91.1 fL (80.0-100.0); Monocytes # (auto) 1.1 uL; Monocytes % (auto) 15.6 % (0.0-12.0); Neutrophils # (auto) 5.1 uL; Neutrophils % (auto) 69.9 % (37.0-80.0); Platelet Count (auto) 301 10^3/uL (140-450); Red Blood Cells 3.16 10^6/uL (4.5-5.90); Red Cell Distribution Width 14.5 % (11.8-14.3); White Blood Cell 7.3 10^3/uL (4.4-10.8)
[2017-08-24 04:07] LABS: BUN/Creatinine Ratio 18.7; Calcium 8.2 mg/dL (8.5-10.1)
[2017-08-24] MEDS: InsuLIN REG 1unit/0.01ml Soln (100units/ml) SC SCH ×4 (06:39→22:00)
[2017-08-24] MEDS: ACCU-CHEK COMFORT CURVE STRIP VI SCH ×4 (06:39→22:38)
[2017-08-24] MEDS: LEVOFLOXACIN 750MG 150 ML IV SCH (06:40)
[2017-08-24] MEDS: SODIUM CHLOR 0.9% PF (SALINE LOCK) 10ML VIAL/SYR IV SCH ×3 (06:40→22:30)
[2017-08-24] MEDS ORDERED: POTASSIUM CHL 10% (20 MEQ/15ML) 15ml ORAL SOLN PO ONE (08:15)
[2017-08-24] MEDS ORDERED: FUROSEMIDE 40 MG/4 ML VIAL IV ONE (08:15)
[2017-08-24] MEDS: ZINC SULFATE 220 MG CAP PO SCH (10:11)
[2017-08-24] MEDS: FAMOTIDINE 20 MG TAB PO SCH ×2 (10:11→22:28)
[2017-08-24] MEDS: MULTIPLE VITAMIN TAB PO SCH (10:11)
[2017-08-24] MEDS: PREGABALIN 25 MG CAP PO SCH ×2 (10:11→22:30)
[2017-08-24] MEDS: METOPROLOL SUCCINATE XL 50 MG TAB PO SCH ×2 (10:11→22:30)
[2017-08-24] MEDS: ASPirin-EC 81 mg tab PO SCH (10:11)
[2017-08-24] MEDS: ENOXAPARIN SOD 30 MG/0.3 ML SYRINGE SC SCH (10:11)
[2017-08-24] MEDS: ASCORBIC ACID 500 MG TAB PO SCH ×2 (10:11→22:29)
[2017-08-24] MEDS: TAMSULOSIN HYDROCHLORIDE 0.4 MG CAP PO SCH (17:36)
[2017-08-24] MEDS: ATORVASTATIN 20 MG TAB PO SCH (22:28)
[2017-08-25] MEDS: ALBUTEROL SULF 2.5 MG/0.5ML(0.5%) NEB SOLN NEB SCH ×4 (00:51→19:25)
[2017-08-25] MEDS: IPRATROPIUM BROM 0.5 MG/2.5ML INH SOL NEB SCH ×4 (00:51→19:25)
[2017-08-25] MEDS: SODIUM CHLOR 0.9% PF (SALINE LOCK) 10ML VIAL/SYR IV SCH ×3 (05:37→22:00)
[2017-08-25 05:43] VITALS: BP 153/72
[2017-08-25 06:00] LABS: Basophils # (auto) 0.1 uL; Basophils % (auto) 0.6 % (0.0-2.0); Eosinophils # (auto) 0.3 uL; Hematocrit 30.2 % (41.0-53.0); Lymphocytes # (auto) 0.8 uL; Lymphocytes % (auto) 8.4 % (10.0-50.0); Mean Corpuscular Hemoglobin 29.8 pg (28.0-32.0); Mean Corpuscular Hgb Conc. 33.2 g/dL (32.0-36.0); Mean Corpuscular Volume 89.8 fL (80.0-100.0); Monocytes # (auto) 1.4 uL; Monocytes % (auto) 14.7 % (0.0-12.0); Neutrophils % (auto) 73.3 % (37.0-80.0); Nucleated Red Blood Cells % 0.1 %; Platelet Count (auto) 324 10^3/uL (140-450); Red Blood Cells 3.37 10^6/uL (4.5-5.90); Red Cell Distribution Width 14.2 % (11.8-14.3); White Blood Cell 9.5 10^3/uL (4.4-10.8)
[2017-08-25 06:21] LABS: Calcium 8.3 mg/dL (8.5-10.1)
[2017-08-25] MEDS: LEVOFLOXACIN 750MG 150 ML IV SCH (06:33)
[2017-08-25] MEDS: ACCU-CHEK COMFORT CURVE STRIP VI SCH ×4 (06:33→22:00)
[2017-08-25] MEDS: InsuLIN REG 1unit/0.01ml Soln (100units/ml) SC SCH ×4 (06:33→22:00)
[2017-08-25] MEDS ORDERED: SOD CHL 0.45% 1,000 ML IV ONE (07:30)
[2017-08-25 09:00] VITALS: BP 142/79
[2017-08-25] MEDS: METOPROLOL SUCCINATE XL 50 MG TAB PO SCH ×2 (10:03→22:00)
[2017-08-25] MEDS: PREGABALIN 25 MG CAP PO SCH ×2 (10:03→22:00)
[2017-08-25] MEDS: ZINC SULFATE 220 MG CAP PO SCH (10:04)
[2017-08-25] MEDS: ASPirin-EC 81 mg tab PO SCH (10:04)
[2017-08-25] MEDS: FAMOTIDINE 20 MG TAB PO SCH ×2 (10:04→22:00)
[2017-08-25] MEDS: MULTIPLE VITAMIN TAB PO SCH (10:04)
[2017-08-25] MEDS: ASCORBIC ACID 500 MG TAB PO SCH ×2 (10:04→22:00)
[2017-08-25] MEDS: ENOXAPARIN SOD 30 MG/0.3 ML SYRINGE SC SCH (10:05)
[2017-08-25 13:00] VITALS: BP 152/72
[2017-08-25 17:00] VITALS: BP 158/85
[2017-08-25] MEDS: TAMSULOSIN HYDROCHLORIDE 0.4 MG CAP PO SCH (17:50)
[2017-08-25 22:00] VITALS: BP 164/77
[2017-08-25] MEDS: ATORVASTATIN 20 MG TAB PO SCH (22:00)
[2017-08-26] MEDS: LORazepam 2MG/ML-1ML VIAL IV PRN (00:33)
[2017-08-26 05:07] VITALS: BP 115/51
[2017-08-26] MEDS: SODIUM CHLOR 0.9% PF (SALINE LOCK) 10ML VIAL/SYR IV SCH ×3 (05:32→22:28)
[2017-08-26] MEDS: LEVOFLOXACIN 750MG 150 ML IV SCH (06:33)
[2017-08-26] MEDS: ACCU-CHEK COMFORT CURVE STRIP VI SCH ×4 (06:34→22:13)
[2017-08-26] MEDS: InsuLIN REG 1unit/0.01ml Soln (100units/ml) SC SCH ×4 (06:34→22:12)
[2017-08-26 06:35] LABS: Basophils # (auto) 0.1 uL; Basophils % (auto) 0.9 % (0.0-2.0); Eosinophils # (auto) 0.3 uL; Eosinophils % (auto) 2.8 % (0.0-7.0); Hematocrit 28.7 % (41.0-53.0); Hemoglobin 9.6 g/dL (13.5-17.5); Lymphocytes % (auto) 10.1 % (10.0-50.0); Mean Corpuscular Hemoglobin 31.4 pg (28.0-32.0); Mean Corpuscular Hgb Conc. 33.6 g/dL (32.0-36.0); Mean Corpuscular Volume 93.5 fL (80.0-100.0); Monocytes # (auto) 1.5 uL; Monocytes % (auto) 15.4 % (0.0-12.0); Neutrophils # (auto) 6.8 uL; Neutrophils % (auto) 70.8 % (37.0-80.0); Nucleated Red Blood Cells % 0.1 %; Platelet Count (auto) 295 10^3/uL (140-450); Red Blood Cells 3.06 10^6/uL (4.5-5.90); Red Cell Distribution Width 14.2 % (11.8-14.3); White Blood Cell 9.5 10^3/uL (4.4-10.8)
[2017-08-26 06:47] LABS: Potassium 4.4 mmol/L (3.5-5.1)
[2017-08-26 06:52] LABS: BUN/Creatinine Ratio 20.7; Calcium 8.5 mg/dL (8.5-10.1)
[2017-08-26] MEDS: IPRATROPIUM BROM 0.5 MG/2.5ML INH SOL NEB SCH ×4 (06:56→19:22)
[2017-08-26] MEDS: ALBUTEROL SULF 2.5 MG/0.5ML(0.5%) NEB SOLN NEB SCH ×4 (06:56→19:22)
[2017-08-26 09:00] VITALS: BP 94/41
[2017-08-26] MEDS ORDERED: SOD CHL 0.45% 1,000 ML IV ONE (09:15)
[2017-08-26] MEDS: PREGABALIN 25 MG CAP PO SCH ×2 (10:00→22:00)
[2017-08-26] MEDS: METOPROLOL SUCCINATE XL 50 MG TAB PO SCH ×2 (10:00→22:00)
[2017-08-26] MEDS: ZINC SULFATE 220 MG CAP PO SCH (10:00)
[2017-08-26] MEDS: ASCORBIC ACID 500 MG TAB PO SCH ×2 (10:00→22:00)
[2017-08-26] MEDS: MULTIPLE VITAMIN TAB PO SCH (10:00)
[2017-08-26] MEDS: ASPirin-EC 81 mg tab PO SCH ×2 (10:00→17:55)
[2017-08-26] MEDS: FAMOTIDINE 20 MG TAB PO SCH ×2 (10:00→22:00)
[2017-08-26] MEDS: ENOXAPARIN SOD 30 MG/0.3 ML SYRINGE SC SCH (12:25)
[2017-08-26 13:00] VITALS: BP 93/46
[2017-08-26 17:00] VITALS: BP 133/65
[2017-08-26] MEDS: TAMSULOSIN HYDROCHLORIDE 0.4 MG CAP PO SCH (18:00)
[2017-08-26 22:00] VITALS: BP 130/66
[2017-08-26] MEDS: ATORVASTATIN 20 MG TAB PO SCH (22:00)
[2017-08-27] MEDS ORDERED: D5W/SOD CHLO 0.9% 1,000 ML IV ONE (02:00)
[2017-08-27 04:30] VITALS: BP 134/66
[2017-08-27 06:05] LABS: Basophils # (auto) 0 uL; Basophils % (auto) 0.3 % (0.0-2.0); Eosinophils # (auto) 0 uL; Eosinophils % (auto) 0.1 % (0.0-7.0); Hematocrit 30.6 % (41.0-53.0); Hemoglobin 10.1 g/dL (13.5-17.5); Lymphocytes # (auto) 0.6 uL; Lymphocytes % (auto) 5.1 % (10.0-50.0); Mean Corpuscular Hemoglobin 30.7 pg (28.0-32.0); Mean Corpuscular Hgb Conc. 33.1 g/dL (32.0-36.0); Mean Corpuscular Volume 92.6 fL (80.0-100.0); Monocytes # (auto) 1.4 uL; Monocytes % (auto) 12.5 % (0.0-12.0); Neutrophils # (auto) 9.5 uL; Nucleated Red Blood Cells % 0.1 %; Platelet Count (auto) 308 10^3/uL (140-450); Red Cell Distribution Width 13.9 % (11.8-14.3); White Blood Cell 11.6 10^3/uL (4.4-10.8)
[2017-08-27 06:09] LABS: Calcium 8.2 mg/dL (8.5-10.1); Potassium 4.5 mmol/L (3.5-5.1)
[2017-08-27] MEDS: ALBUTEROL SULF 2.5 MG/0.5ML(0.5%) NEB SOLN NEB SCH ×4 (06:23→19:00)
[2017-08-27] MEDS: IPRATROPIUM BROM 0.5 MG/2.5ML INH SOL NEB SCH ×4 (06:23→19:00)
[2017-08-27] MEDS: InsuLIN REG 1unit/0.01ml Soln (100units/ml) SC SCH ×4 (06:31→22:00)
[2017-08-27] MEDS: SODIUM CHLOR 0.9% PF (SALINE LOCK) 10ML VIAL/SYR IV SCH (06:31)
[2017-08-27] MEDS: LEVOFLOXACIN 750MG 150 ML IV SCH (06:31)
[2017-08-27] MEDS: ACCU-CHEK COMFORT CURVE STRIP VI SCH ×3 (06:32→17:49)
[2017-08-27 09:00] VITALS: BP 118/63
[2017-08-27] MEDS: MULTIPLE VITAMIN TAB PO SCH (10:00)
[2017-08-27] MEDS: ENOXAPARIN SOD 30 MG/0.3 ML SYRINGE SC SCH (10:38)
[2017-08-27] MEDS: METOPROLOL SUCCINATE XL 50 MG TAB PO SCH ×2 (10:38→22:47)
[2017-08-27] MEDS: PREGABALIN 25 MG CAP PO SCH ×2 (10:52→22:46)
[2017-08-27] MEDS: ASPirin-EC 81 mg tab PO SCH (10:53)
[2017-08-27] MEDS: ZINC SULFATE 220 MG CAP PO SCH (10:54)
[2017-08-27] MEDS: ASCORBIC ACID 500 MG TAB PO SCH ×2 (10:57→22:46)
[2017-08-27] MEDS: FAMOTIDINE 20 MG TAB PO SCH ×2 (10:58→22:47)
[2017-08-27 13:00] VITALS: BP 133/65
[2017-08-27] MEDS ORDERED: DOCUSATE SOD 100 MG CAP PO PRN (14:45)
[2017-08-27] MEDS ORDERED: ONDANSETRON HCL 4 MG/2 ML VIAL IV PRN (14:45)
[2017-08-27] MEDS ORDERED: MORPHINE SULFATE 8mg/ml INJ SDV IV PRN (14:45)
[2017-08-27] MEDS ORDERED: cloNIDine HCL 0.1 MG TAB PO PRN (14:45)
[2017-08-27] MEDS ORDERED: HYDROcodone-ACET 5/325MG TAB PO PRN (14:45)
[2017-08-27] MEDS: SODIUM CHLORIDE 0.9% 1,000 ML IV SCH (15:02)
[2017-08-27 17:00] VITALS: BP 141/68
[2017-08-27] MEDS: TAMSULOSIN HYDROCHLORIDE 0.4 MG CAP PO SCH (18:37)
[2017-08-27 20:51] VITALS: BP 141/68
[2017-08-27 21:32] VITALS: BP 149/74
[2017-08-27] MEDS: ATORVASTATIN 20 MG TAB PO SCH (22:48)
[2017-08-28] MEDS: ACCU-CHEK COMFORT CURVE STRIP VI SCH ×5 (02:29→22:11)
[2017-08-28] MEDS: SODIUM CHLOR 0.9% PF (SALINE LOCK) 10ML VIAL/SYR IV SCH ×4 (02:31→22:11)
[2017-08-28 05:00] VITALS: BP 124/65
[2017-08-28] MEDS: LEVOFLOXACIN 750MG 150 ML IV SCH (06:12)
[2017-08-28] MEDS: InsuLIN REG 1unit/0.01ml Soln (100units/ml) SC SCH ×4 (06:13→22:00)
[2017-08-28] MEDS: SODIUM CHLORIDE 0.9% 1,000 ML IV SCH ×2 (06:15→17:25)
[2017-08-28] MEDS: ALBUTEROL SULF 2.5 MG/0.5ML(0.5%) NEB SOLN NEB SCH ×3 (07:05→19:15)
[2017-08-28] MEDS: IPRATROPIUM BROM 0.5 MG/2.5ML INH SOL NEB SCH ×3 (07:05→19:15)
[2017-08-28 07:22] LABS: Basophils # (auto) 0 uL; Basophils % (auto) 0.4 % (0.0-2.0); Eosinophils # (auto) 0.1 uL; Eosinophils % (auto) 0.6 % (0.0-7.0); Hemoglobin 9.4 g/dL (13.5-17.5); Lymphocytes # (auto) 0.7 uL; Lymphocytes % (auto) 6.6 % (10.0-50.0); Mean Corpuscular Hemoglobin 31.4 pg (28.0-32.0); Mean Corpuscular Hgb Conc. 33.6 g/dL (32.0-36.0); Mean Corpuscular Volume 93.4 fL (80.0-100.0); Monocytes # (auto) 1.5 uL; Monocytes % (auto) 13.4 % (0.0-12.0); Platelet Count (auto) 274 10^3/uL (140-450); White Blood Cell 11.3 10^3/uL (4.4-10.8)
[2017-08-28 07:33] LABS: Albumin 2.4 g/dL (3.4-5.0); Calcium 8.1 mg/dL (8.5-10.1); Potassium 4.5 mmol/L (3.5-5.1)
[2017-08-28 07:46] LABS: BUN/Creatinine Ratio 20.1
[2017-08-28 09:09] VITALS: BP 106/58
[2017-08-28] MEDS: ZINC SULFATE 220 MG CAP PO SCH (09:23)
[2017-08-28] MEDS: ASCORBIC ACID 500 MG TAB PO SCH ×2 (09:23→22:01)
[2017-08-28] MEDS: PREGABALIN 25 MG CAP PO SCH ×2 (09:24→22:00)
[2017-08-28] MEDS: ASPirin-EC 81 mg tab PO SCH (09:24)
[2017-08-28] MEDS: FAMOTIDINE 20 MG TAB PO SCH ×2 (09:24→22:00)
[2017-08-28] MEDS: ENOXAPARIN SOD 30 MG/0.3 ML SYRINGE SC SCH (09:25)
[2017-08-28] MEDS: MULTIPLE VITAMIN TAB PO SCH (09:25)
[2017-08-28] MEDS: METOPROLOL SUCCINATE XL 50 MG TAB PO SCH ×2 (09:35→22:00)
[2017-08-28 13:00] VITALS: BP 135/65
[2017-08-28 17:00] VITALS: BP 149/59
[2017-08-28] MEDS: TAMSULOSIN HYDROCHLORIDE 0.4 MG CAP PO SCH (18:29)
[2017-08-28 21:30] VITALS: BP 152/71
[2017-08-28] MEDS: ATORVASTATIN 20 MG TAB PO SCH (22:01)
[2017-08-29 04:33] VITALS: BP 115/67
[2017-08-29] MEDS: SODIUM CHLOR 0.9% PF (SALINE LOCK) 10ML VIAL/SYR IV SCH ×3 (06:00→22:18)
[2017-08-29] MEDS: ALBUTEROL SULF 2.5 MG/0.5ML(0.5%) NEB SOLN NEB SCH ×4 (06:39→19:09)
[2017-08-29] MEDS: IPRATROPIUM BROM 0.5 MG/2.5ML INH SOL NEB SCH ×4 (06:39→19:09)
[2017-08-29] MEDS: InsuLIN REG 1unit/0.01ml Soln (100units/ml) SC SCH ×4 (06:50→21:47)
[2017-08-29] MEDS: ACCU-CHEK COMFORT CURVE STRIP VI SCH ×4 (06:52→21:47)
[2017-08-29] MEDS: SODIUM CHLORIDE 0.9% 1,000 ML IV SCH ×2 (06:52→20:23)
[2017-08-29 07:08] LABS: Basophils # (auto) 0.1 uL; Basophils % (auto) 0.8 % (0.0-2.0); Eosinophils # (auto) 0.1 uL; Eosinophils % (auto) 0.8 % (0.0-7.0); Hematocrit 30.2 % (41.0-53.0); Lymphocytes # (auto) 0.7 uL; Lymphocytes % (auto) 6.2 % (10.0-50.0); Mean Corpuscular Hemoglobin 31.5 pg (28.0-32.0); Mean Corpuscular Hgb Conc. 32.9 g/dL (32.0-36.0); Mean Corpuscular Volume 95.6 fL (80.0-100.0); Monocytes # (auto) 1.6 uL; Monocytes % (auto) 13.4 % (0.0-12.0); Neutrophils # (auto) 9.2 uL; Neutrophils % (auto) 78.8 % (37.0-80.0); Nucleated Red Blood Cells % 0.1 %; Platelet Count (auto) 255 10^3/uL (140-450); Red Blood Cells 3.16 10^6/uL (4.5-5.90); Red Cell Distribution Width 14.5 % (11.8-14.3); White Blood Cell 11.7 10^3/uL (4.4-10.8)
[2017-08-29 07:19] LABS: BUN/Creatinine Ratio 17.6; Calcium 8.1 mg/dL (8.5-10.1); Potassium 4.8 mmol/L (3.5-5.1)
[2017-08-29 09:00] VITALS: BP 142/79
[2017-08-29] MEDS: MULTIPLE VITAMIN TAB PO SCH (10:49)
[2017-08-29] MEDS: ASCORBIC ACID 500 MG TAB PO SCH ×2 (10:49→22:17)
[2017-08-29] MEDS: ENOXAPARIN SOD 30 MG/0.3 ML SYRINGE SC SCH (10:49)
[2017-08-29] MEDS: PREGABALIN 25 MG CAP PO SCH ×2 (10:50→22:15)
[2017-08-29] MEDS: FAMOTIDINE 20 MG TAB PO SCH ×2 (10:51→22:17)
[2017-08-29] MEDS: ZINC SULFATE 220 MG CAP PO SCH (10:51)
[2017-08-29] MEDS: METOPROLOL SUCCINATE XL 50 MG TAB PO SCH ×2 (10:55→22:16)
[2017-08-29] MEDS: ASPirin-EC 81 mg tab PO SCH (11:16)
[2017-08-29 11:48] LABS: Urine Amorphous Crystal FEW /hpf (None Seen); Urine Bacteria MOD /hpf (None Seen); Urine Blood 2+ /uL (Negative); Urine Budding Yeast MANY /hpf (None Seen); Urine Specific Gravity 1.011 (1.001-1.035); Urine WBC 652 /hpf (0 - 3)
[2017-08-29 13:00] VITALS: BP 137/58
[2017-08-29] MEDS: TAMSULOSIN HYDROCHLORIDE 0.4 MG CAP PO SCH (19:00)
[2017-08-29] MEDS: PIPERACILLIN-TAZOB 2.25GM 50 ML IV SCH (20:23)
[2017-08-29 21:37] VITALS: BP 113/50
[2017-08-29] MEDS: ATORVASTATIN 20 MG TAB PO SCH (22:17)
[2017-08-30] VITALS (36 sets, daily range): BP systolic 92–134; BP diastolic 46–66
[2017-08-30] MEDS: PIPERACILLIN-TAZOB 2.25GM 50 ML IV SCH ×5 (01:10→23:59)
[2017-08-30 06:11] LABS: Basophils # (auto) 0 uL; Basophils % (auto) 0.5 % (0.0-2.0); Eosinophils # (auto) 0 uL; Eosinophils % (auto) 0.1 % (0.0-7.0); Hematocrit 29.6 % (41.0-53.0); Hemoglobin 9.8 g/dL (13.5-17.5); Lymphocytes # (auto) 0.4 uL; Lymphocytes % (auto) 4.6 % (10.0-50.0); Mean Corpuscular Hemoglobin 31.4 pg (28.0-32.0); Mean Corpuscular Hgb Conc. 33.1 g/dL (32.0-36.0); Mean Corpuscular Volume 94.7 fL (80.0-100.0); Monocytes # (auto) 0.7 uL; Monocytes % (auto) 8.1 % (0.0-12.0); Neutrophils # (auto) 7.7 uL; Neutrophils % (auto) 86.7 % (37.0-80.0); Platelet Count (auto) 266 10^3/uL (140-450); Red Blood Cells 3.12 10^6/uL (4.5-5.90); Red Cell Distribution Width 14.4 % (11.8-14.3); White Blood Cell 8.9 10^3/uL (4.4-10.8)
[2017-08-30] MEDS: SODIUM CHLOR 0.9% PF (SALINE LOCK) 10ML VIAL/SYR IV SCH ×3 (06:19→22:44)
[2017-08-30] MEDS: InsuLIN REG 1unit/0.01ml Soln (100units/ml) SC SCH ×4 (06:19→22:30)
[2017-08-30] MEDS: ACCU-CHEK COMFORT CURVE STRIP VI SCH ×4 (06:19→22:30)
[2017-08-30] MEDS: IPRATROPIUM BROM 0.5 MG/2.5ML INH SOL NEB SCH ×4 (06:19→18:32)
[2017-08-30] MEDS: ALBUTEROL SULF 2.5 MG/0.5ML(0.5%) NEB SOLN NEB SCH ×4 (06:19→18:32)
[2017-08-30 06:22] LABS: Calcium 8.3 mg/dL (8.5-10.1); Potassium 5.2 mmol/L (3.5-5.1)
[2017-08-30 06:33] LABS: BUN/Creatinine Ratio 20.6
[2017-08-30] MEDS ORDERED: LEVOFLOXACIN 750MG 150 ML IV SCH (07:00)
[2017-08-30] MEDS: SODIUM CHLORIDE 0.9% 1,000 ML IV SCH (09:30)
[2017-08-30] MEDS: ASCORBIC ACID 500 MG TAB PO SCH ×2 (10:00→22:47)
[2017-08-30] MEDS: FAMOTIDINE 20 MG TAB PO SCH (10:00)
[2017-08-30] MEDS: PREGABALIN 25 MG CAP PO SCH (10:00)
[2017-08-30] MEDS: ASPirin-EC 81 mg tab PO SCH (10:00)
[2017-08-30] MEDS: MULTIPLE VITAMIN TAB PO SCH (10:00)
[2017-08-30] MEDS: ZINC SULFATE 220 MG CAP PO SCH (10:00)
[2017-08-30] MEDS: METOPROLOL SUCCINATE XL 50 MG TAB PO SCH ×2 (10:00→22:00)
[2017-08-30] MEDS ORDERED: VANCOMYCIN PER PHARMACY 0 MG IV SCH (10:30)
[2017-08-30] MEDS ORDERED: VANCOMYCIN 1,250 MG in D5W 5% 250 ML IV SCH (11:00)
[2017-08-30] MEDS: ENOXAPARIN SOD 30 MG/0.3 ML SYRINGE SC SCH (12:30)
[2017-08-30] MEDS ORDERED: SODIUM CHLORIDE 0.9% 1,000 ML IV SCH (15:30)
[2017-08-30] MEDS ORDERED: FUROSEMIDE 40 MG/4 ML VIAL IV ONE (15:30)
[2017-08-30] MEDS ORDERED: DEXTROSE (50%) 50ML SYRG IV PRN (15:30)
[2017-08-30] MEDS ORDERED: PROPOFOL 100 ML IV ONE (15:56)
[2017-08-30] MEDS: PROPOFOL 100 ML IV SCH ×3 (16:15→23:57)
[2017-08-30] MEDS ORDERED: NOREPINEPHRINE 16 MG/500ML KIT 500 ML IV SCH (16:36)
[2017-08-30] MEDS: PANTOPRAZOLE 40 MG/10 ML VIAL IV SCH (17:00)
[2017-08-30] MEDS: TAMSULOSIN HYDROCHLORIDE 0.4 MG CAP PO SCH (18:00)
[2017-08-30 18:20] LABS: Basophils # (auto) 0 uL; Basophils % (auto) 0.4 % (0.0-2.0); Eosinophils # (auto) 0 uL; Eosinophils % (auto) 0.1 % (0.0-7.0); Hematocrit 30.4 % (41.0-53.0); Hemoglobin 9.9 g/dL (13.5-17.5); Lymphocytes # (auto) 0.3 uL; Lymphocytes % (auto) 2.2 % (10.0-50.0); Mean Corpuscular Hemoglobin 32.5 pg (28.0-32.0); Mean Corpuscular Hgb Conc. 32.5 g/dL (32.0-36.0); Monocytes # (auto) 0.8 uL; Monocytes % (auto) 6.9 % (0.0-12.0); Neutrophils # (auto) 10.7 uL; Neutrophils % (auto) 90.4 % (37.0-80.0); Nucleated Red Blood Cells % 0.1 %; Platelet Count (auto) 253 10^3/uL (140-450); Red Blood Cells 3.04 10^6/uL (4.5-5.90); Red Cell Distribution Width 15.4 % (11.8-14.3); White Blood Cell 11.8 10^3/uL (4.4-10.8)
[2017-08-30] MEDS ORDERED: SODIUM BICARBONATE 8.4% INJ 50ML SYRINGE IV ONE (18:27)
[2017-08-30] MEDS ORDERED: EPINEPHrine HCL 1 MG/10 ML SYRG IV ONE (18:27)
[2017-08-30 18:30] LABS: BUN/Creatinine Ratio 19.2; Potassium 5.4 mmol/L (3.5-5.1)
[2017-08-30 18:31] LABS: Albumin 2.2 g/dL (3.4-5.0); Calcium 8.3 mg/dL (8.5-10.1)
[2017-08-30 18:32] LABS: Bilirubin, Total 1.2 mg/dL (0.2-1.0); Total Protein 5.8 g/dL (6.4-8.2)
[2017-08-30] MEDS ORDERED: FUROSEMIDE 20 MG/2 ML VIAL IV ONE (19:15)
[2017-08-30] MEDS ORDERED: ENOXAPARIN SOD 60 MG/0.6 ML SYRINGE SC ONE (19:15)
[2017-08-30] MEDS ORDERED: SODIUM POLYSTYRENE SULF 15GM/60ML SUSP PO ONE (19:15)
[2017-08-30] MEDS: ATORVASTATIN 20 MG TAB PO SCH (22:47)
[2017-08-31] VITALS (100 sets, daily range): BP systolic 120–156; BP diastolic 53–75
[2017-08-31] MEDS: ALBUTEROL SULF 2.5 MG/0.5ML(0.5%) NEB SOLN NEB SCH ×4 (00:46→18:36)
[2017-08-31] MEDS: IPRATROPIUM BROM 0.5 MG/2.5ML INH SOL NEB SCH ×4 (00:46→18:36)
[2017-08-31 03:53] LABS: Basophils # (auto) 0 uL; Basophils % (auto) 0.2 % (0.0-2.0); Eosinophils # (auto) 0 uL; Eosinophils % (auto) 0.2 % (0.0-7.0); Hematocrit 26.3 % (41.0-53.0); Hemoglobin 8.9 g/dL (13.5-17.5); Lymphocytes # (auto) 0.4 uL; Lymphocytes % (auto) 4.1 % (10.0-50.0); Mean Corpuscular Hemoglobin 31.5 pg (28.0-32.0); Mean Corpuscular Hgb Conc. 33.9 g/dL (32.0-36.0); Mean Corpuscular Volume 92.9 fL (80.0-100.0); Monocytes % (auto) 9.9 % (0.0-12.0); Neutrophils # (auto) 8.4 uL; Neutrophils % (auto) 85.6 % (37.0-80.0); Nucleated Red Blood Cells % 0.1 %; Platelet Count (auto) 262 10^3/uL (140-450); Red Blood Cells 2.83 10^6/uL (4.5-5.90); Red Cell Distribution Width 14.8 % (11.8-14.3); White Blood Cell 9.8 10^3/uL (4.4-10.8)
[2017-08-31 04:07] LABS: Albumin 2.2 g/dL (3.4-5.0); Calcium 8.1 mg/dL (8.5-10.1); Magnesium 2.8 mg/dL (1.6-2.6); Potassium 4.5 mmol/L (3.5-5.1)
[2017-08-31 04:12] LABS: BUN/Creatinine Ratio 20.4; Total Protein 5.6 g/dL (6.4-8.2)
[2017-08-31] MEDS: PROPOFOL 100 ML IV SCH ×4 (04:49→22:26)
[2017-08-31] MEDS: PIPERACILLIN-TAZOB 2.25GM 50 ML IV SCH ×3 (06:05→21:54)
[2017-08-31] MEDS: SODIUM CHLOR 0.9% PF (SALINE LOCK) 10ML VIAL/SYR IV SCH ×4 (06:07→21:56)
[2017-08-31] MEDS: ACCU-CHEK COMFORT CURVE STRIP VI SCH ×2 (06:15→18:26)
[2017-08-31] MEDS: InsuLIN REG 1unit/0.01ml Soln (100units/ml) SC SCH ×3 (06:15→18:00)
[2017-08-31] MEDS ORDERED: PROPOFOL 100 ML IV ONE (07:58)
[2017-08-31] MEDS: D5W 5% 1,000 ML IV SCH ×2 (09:15→09:33)
[2017-08-31] MEDS ORDERED: FUROSEMIDE 40 MG/4 ML VIAL IV SCH ×2 (10:00→22:00)
[2017-08-31] MEDS: PANTOPRAZOLE 40 MG/10 ML VIAL IV SCH (10:45)
[2017-08-31] MEDS: ZINC SULFATE 220 MG CAP PO SCH (10:45)
[2017-08-31] MEDS: ASPirin-EC 81 mg tab PO SCH (10:45)
[2017-08-31] MEDS: MULTIPLE VITAMIN TAB PO SCH (10:46)
[2017-08-31] MEDS: ASCORBIC ACID 500 MG TAB PO SCH ×2 (10:46→21:55)
[2017-08-31] MEDS: ENOXAPARIN SOD 30 MG/0.3 ML SYRINGE SC SCH (10:46)
[2017-08-31] MEDS ORDERED: ACCU-CHEK COMFORT CURVE STRIP VI SCH (11:30)
[2017-08-31] MEDS ORDERED: FLUCONAZOLE 200MG/100ML 100 ML IV ONE (12:15)
[2017-08-31] MEDS ORDERED: DEXTROSE (50%) 50ML SYRG IV PRN (12:15)
[2017-08-31] MEDS ORDERED: METOPROLOL TARTRATE 25 MG TAB PO ONE (12:30)
[2017-08-31 12:37] LABS: INR 1.1 (0.9-1.15); Partial Thromboplastin Time 32.1 sec (22.64-33.71)
[2017-08-31] MEDS ORDERED: ENOXAPARIN SOD 60 MG/0.6 ML SYRINGE SC ONE (13:15)
[2017-08-31] MEDS ORDERED: LIDOCAINE 1% (LOCAL ANESTH.) PF 5ml SDV ID ONE (16:00)
[2017-08-31] MEDS: LINEZOLID 600MG/300ML 300 ML IV SCH (18:26)
[2017-08-31] MEDS: TAMSULOSIN HYDROCHLORIDE 0.4 MG CAP PO SCH (18:42)
[2017-08-31] MEDS: ATORVASTATIN 20 MG TAB PO SCH (21:55)
[2017-08-31] MEDS: METOPROLOL TARTRATE 25 MG TAB PO SCH (23:55)
[2017-09-01] VITALS (104 sets, daily range): BP systolic 119–161; BP diastolic 47–72
[2017-09-01] MEDS: ACCU-CHEK COMFORT CURVE STRIP VI SCH ×3 (00:26→18:17)
[2017-09-01] MEDS: LINEZOLID 600MG/300ML 300 ML IV SCH ×2 (03:04→16:38)
[2017-09-01] MEDS: PROPOFOL 100 ML IV SCH ×4 (04:03→21:02)
[2017-09-01] MEDS: D5W 5% 1,000 ML IV SCH (05:15)
[2017-09-01 05:33] LABS: Basophils # (auto) 0 uL; Basophils % (auto) 0.5 % (0.0-2.0); Eosinophils # (auto) 0.3 uL; Eosinophils % (auto) 3.2 % (0.0-7.0); Hematocrit 26.6 % (41.0-53.0); Hemoglobin 9.1 g/dL (13.5-17.5); Lymphocytes # (auto) 0.9 uL; Mean Corpuscular Hemoglobin 30.7 pg (28.0-32.0); Mean Corpuscular Hgb Conc. 34.1 g/dL (32.0-36.0); Monocytes # (auto) 1.1 uL; Monocytes % (auto) 12.1 % (0.0-12.0); Neutrophils # (auto) 6.5 uL; Neutrophils % (auto) 74.2 % (37.0-80.0); Nucleated Red Blood Cells % 0.1 %; Platelet Count (auto) 257 10^3/uL (140-450); Red Blood Cells 2.95 10^6/uL (4.5-5.90); Red Cell Distribution Width 14.2 % (11.8-14.3); White Blood Cell 8.8 10^3/uL (4.4-10.8)
[2017-09-01] MEDS: InsuLIN REG 1unit/0.01ml Soln (100units/ml) SC SCH ×3 (05:42→18:00)
[2017-09-01 05:50] LABS: Albumin 2.2 g/dL (3.4-5.0); BUN/Creatinine Ratio 18.4; Bilirubin, Total 0.7 mg/dL (0.2-1.0); Calcium 7.7 mg/dL (8.5-10.1); Magnesium 2.6 mg/dL (1.6-2.6); Potassium 3.8 mmol/L (3.5-5.1); Total Protein 5.5 g/dL (6.4-8.2)
[2017-09-01] MEDS: PIPERACILLIN-TAZOB 2.25GM 50 ML IV SCH ×3 (06:04→22:51)
[2017-09-01] MEDS: SODIUM CHLOR 0.9% PF (SALINE LOCK) 10ML VIAL/SYR IV SCH ×3 (06:04→22:00)
[2017-09-01] MEDS: ALBUTEROL SULF 2.5 MG/0.5ML(0.5%) NEB SOLN NEB SCH ×4 (06:28→18:17)
[2017-09-01] MEDS: IPRATROPIUM BROM 0.5 MG/2.5ML INH SOL NEB SCH ×4 (06:28→18:17)
[2017-09-01] MEDS: MULTIPLE VITAMIN TAB PO SCH (10:00)
[2017-09-01] MEDS ORDERED: D5W 5% 1,000 ML IV SCH ×2 (10:00→20:00)
[2017-09-01] MEDS: METOPROLOL TARTRATE 25 MG TAB PO SCH ×2 (10:00→22:51)
[2017-09-01] MEDS: ZINC SULFATE 220 MG CAP PO SCH (10:00)
[2017-09-01] MEDS: ASPirin-EC 81 mg tab PO SCH (10:00)
[2017-09-01] MEDS: ASCORBIC ACID 500 MG TAB PO SCH ×2 (10:00→22:52)
[2017-09-01] MEDS ORDERED: TPN PER PHARMACY 0 ML IV SCH (10:15)
[2017-09-01] MEDS ORDERED: DEXTROSE (50%) 50ML SYRG IV PRN (10:15)
[2017-09-01] MEDS: PANTOPRAZOLE 40 MG/10 ML VIAL IV SCH (10:20)
[2017-09-01] MEDS: FLUCONAZOLE 200MG/100ML 100 ML IV SCH (10:20)
[2017-09-01] MEDS: ENOXAPARIN SOD 30 MG/0.3 ML SYRINGE SC SCH (10:22)
[2017-09-01 10:43] LABS: Phosphorus 4.1 mg/dL (2.5-4.90); Pre Albumin 12.8 mg/dL (20.0-40.0)
[2017-09-01] MEDS ORDERED: ACCU-CHEK COMFORT CURVE STRIP VI SCH (12:00)
[2017-09-01] MEDS ORDERED: InsuLIN REG 1unit/0.01ml Soln (100units/ml) SC SCH (12:00)
[2017-09-01] MEDS ORDERED: DEXTROSE (50%) 50ML SYRG IV SCH (18:00)
[2017-09-01] MEDS: TAMSULOSIN HYDROCHLORIDE 0.4 MG CAP PO SCH (18:17)
[2017-09-01 18:28] LABS: Anion Gap 15 (5-15); Carbon Dioxide 18 mmol/L (21-32); Chloride 76 mmol/L (98-107); GFR African American 21 mL/min; GFR Non-African American 17 mL/min
[2017-09-01 18:36] LABS: Blood Urea Nitrogen 59 mg/dL (7-18)
[2017-09-01] MEDS ORDERED: TPN PER PHARMACY IV NR ×15 (20:00)
[2017-09-01 20:20] LABS: BUN/Creatinine Ratio 16.1; Sodium 109 mmol/L (136-145)
[2017-09-01 20:24] LABS: Calcium < 5.0 mg/dL (8.5-10.1); Glucose 1129 mg/dL (74-106); Potassium 2.8 mmol/L (3.5-5.1)
[2017-09-01 21:07] LABS: Albumin 2.1 g/dL (3.4-5.0); BUN/Creatinine Ratio 17.7; Bilirubin, Total 0.7 mg/dL (0.2-1.0); Calcium 7.6 mg/dL (8.5-10.1); Potassium 3.6 mmol/L (3.5-5.1); Total Protein 5.4 g/dL (6.4-8.2)
[2017-09-01] MEDS: ATORVASTATIN 20 MG TAB PO SCH (22:52)
[2017-09-02] VITALS (102 sets, daily range): BP systolic 112–165; BP diastolic 45–77
[2017-09-02] MEDS: ACCU-CHEK COMFORT CURVE STRIP VI SCH ×4 (00:08→18:32)
[2017-09-02] MEDS: InsuLIN REG 1unit/0.01ml Soln (100units/ml) SC SCH ×4 (00:09→18:40)
[2017-09-02] MEDS: IPRATROPIUM BROM 0.5 MG/2.5ML INH SOL NEB SCH ×4 (00:13→18:17)
[2017-09-02] MEDS: ALBUTEROL SULF 2.5 MG/0.5ML(0.5%) NEB SOLN NEB SCH ×4 (00:13→18:17)
[2017-09-02] MEDS: LINEZOLID 600MG/300ML 300 ML IV SCH ×2 (02:00→14:49)
[2017-09-02 04:01] LABS: Basophils # (auto) 0 uL; Basophils % (auto) 0.4 % (0.0-2.0); Eosinophils # (auto) 0.4 uL; Hematocrit 26.9 % (41.0-53.0); Lymphocytes # (auto) 0.9 uL; Lymphocytes % (auto) 10.5 % (10.0-50.0); Mean Corpuscular Hgb Conc. 33.3 g/dL (32.0-36.0); Monocytes % (auto) 11.8 % (0.0-12.0); Neutrophils # (auto) 6.3 uL; Neutrophils % (auto) 72.3 % (37.0-80.0); Platelet Count (auto) 238 10^3/uL (140-450); Red Blood Cells 3.09 10^6/uL (4.5-5.90); Red Cell Distribution Width 14.2 % (11.8-14.3); White Blood Cell 8.7 10^3/uL (4.4-10.8)
[2017-09-02 04:30] LABS: BUN/Creatinine Ratio 18.1; Bilirubin, Total 0.6 mg/dL (0.2-1.0); Calcium 7.5 mg/dL (8.5-10.1); Magnesium 2.3 mg/dL (1.6-2.6); Phosphorus 4.2 mg/dL (2.5-4.90); Potassium 3.7 mmol/L (3.5-5.1); Total Protein 5.4 g/dL (6.4-8.2)
[2017-09-02] MEDS: PIPERACILLIN-TAZOB 2.25GM 50 ML IV SCH ×3 (06:00→22:28)
[2017-09-02] MEDS: PROPOFOL 100 ML IV SCH (07:48)
[2017-09-02] MEDS: PANTOPRAZOLE 40 MG/10 ML VIAL IV SCH (12:19)
[2017-09-02] MEDS: ENOXAPARIN SOD 30 MG/0.3 ML SYRINGE SC SCH (12:19)
[2017-09-02] MEDS: ZINC SULFATE 220 MG CAP PO SCH (12:20)
[2017-09-02] MEDS: MULTIPLE VITAMIN TAB PO SCH (12:20)
[2017-09-02] MEDS: ASPirin-EC 81 mg tab PO SCH (12:20)
[2017-09-02] MEDS: FLUCONAZOLE 200MG/100ML 100 ML IV SCH (12:20)
[2017-09-02] MEDS: ASCORBIC ACID 500 MG TAB PO SCH ×2 (12:20→22:28)
[2017-09-02] MEDS: METOPROLOL TARTRATE 25 MG TAB PO SCH ×2 (12:21→22:30)
[2017-09-02] MEDS: SODIUM CHLOR 0.9% PF (SALINE LOCK) 10ML VIAL/SYR IV SCH ×2 (12:42→22:27)
[2017-09-02] MEDS ORDERED: Diabetisource AC 1 Liter GT SCH (15:00)
[2017-09-02] MEDS: TAMSULOSIN HYDROCHLORIDE 0.4 MG CAP PO SCH (18:40)
[2017-09-02] MEDS ORDERED: TPN PER PHARMACY IV NR ×9 (20:00)
[2017-09-02] MEDS: ATORVASTATIN 20 MG TAB PO SCH (22:28)
[2017-09-03] VITALS (106 sets, daily range): BP systolic 108–148; BP diastolic 42–88
[2017-09-03] MEDS: ACCU-CHEK COMFORT CURVE STRIP VI SCH ×5 (00:27→23:48)
[2017-09-03] MEDS: InsuLIN REG 1unit/0.01ml Soln (100units/ml) SC SCH ×5 (00:31→23:49)
[2017-09-03] MEDS: IPRATROPIUM BROM 0.5 MG/2.5ML INH SOL NEB SCH ×4 (00:36→18:35)
[2017-09-03] MEDS: ALBUTEROL SULF 2.5 MG/0.5ML(0.5%) NEB SOLN NEB SCH ×4 (00:36→18:35)
[2017-09-03] MEDS: PROPOFOL 100 ML IV SCH ×4 (01:22→23:30)
[2017-09-03] MEDS: LINEZOLID 600MG/300ML 300 ML IV SCH (01:25)
[2017-09-03 04:31] LABS: Basophils # (auto) 0 uL; Basophils % (auto) 0.3 % (0.0-2.0); Eosinophils # (auto) 0.2 uL; Eosinophils % (auto) 2.7 % (0.0-7.0); Hemoglobin 9.4 g/dL (13.5-17.5); Lymphocytes # (auto) 0.7 uL; Lymphocytes % (auto) 7.6 % (10.0-50.0); Mean Corpuscular Hemoglobin 29.1 pg (28.0-32.0); Mean Corpuscular Hgb Conc. 33.5 g/dL (32.0-36.0); Mean Corpuscular Volume 86.8 fL (80.0-100.0); Monocytes % (auto) 10.7 % (0.0-12.0); Neutrophils # (auto) 7.1 uL; Neutrophils % (auto) 78.7 % (37.0-80.0); Platelet Count (auto) 216 10^3/uL (140-450); Red Blood Cells 3.23 10^6/uL (4.5-5.90); Red Cell Distribution Width 14.5 % (11.8-14.3)
[2017-09-03 04:50] LABS: Albumin 2.1 g/dL (3.4-5.0); BUN/Creatinine Ratio 17.8; Bilirubin, Total 0.6 mg/dL (0.2-1.0); Calcium 7.8 mg/dL (8.5-10.1); Magnesium 2.2 mg/dL (1.6-2.6); Phosphorus 4.4 mg/dL (2.5-4.90); Total Protein 5.6 g/dL (6.4-8.2)
[2017-09-03] MEDS: PIPERACILLIN-TAZOB 2.25GM 50 ML IV SCH (05:29)
[2017-09-03] MEDS: METOPROLOL TARTRATE 25 MG TAB PO SCH ×2 (10:00→22:02)
[2017-09-03] MEDS: ASPirin-EC 81 mg tab PO SCH (10:57)
[2017-09-03] MEDS: MULTIPLE VITAMIN TAB PO SCH (10:57)
[2017-09-03] MEDS: ENOXAPARIN SOD 30 MG/0.3 ML SYRINGE SC SCH (10:57)
[2017-09-03] MEDS: ZINC SULFATE 220 MG CAP PO SCH (10:57)
[2017-09-03] MEDS: ASCORBIC ACID 500 MG TAB PO SCH ×2 (10:57→22:01)
[2017-09-03] MEDS: PANTOPRAZOLE 40 MG/10 ML VIAL IV SCH (10:58)
[2017-09-03] MEDS: FLUCONAZOLE 200MG/100ML 100 ML IV SCH (10:58)
[2017-09-03] MEDS: SODIUM CHLOR 0.9% PF (SALINE LOCK) 10ML VIAL/SYR IV SCH ×2 (10:58→22:02)
[2017-09-03] MEDS: TAMSULOSIN HYDROCHLORIDE 0.4 MG CAP PO SCH (18:09)
[2017-09-03] MEDS: ATORVASTATIN 20 MG TAB PO SCH (22:01)
[2017-09-04] VITALS (90 sets, daily range): BP systolic 108–151; BP diastolic 44–90
[2017-09-04] MEDS: IPRATROPIUM BROM 0.5 MG/2.5ML INH SOL NEB SCH ×4 (00:26→18:28)
[2017-09-04] MEDS: ALBUTEROL SULF 2.5 MG/0.5ML(0.5%) NEB SOLN NEB SCH ×4 (00:26→18:28)
[2017-09-04 05:11] LABS: Basophils # (auto) 0.1 uL; Basophils % (auto) 0.5 % (0.0-2.0); Eosinophils # (auto) 0.6 uL; Eosinophils % (auto) 6.2 % (0.0-7.0); Hematocrit 28.1 % (41.0-53.0); Hemoglobin 9.4 g/dL (13.5-17.5); Lymphocytes # (auto) 0.7 uL; Lymphocytes % (auto) 7.4 % (10.0-50.0); Mean Corpuscular Hemoglobin 29.1 pg (28.0-32.0); Mean Corpuscular Hgb Conc. 33.5 g/dL (32.0-36.0); Mean Corpuscular Volume 86.9 fL (80.0-100.0); Monocytes % (auto) 9.8 % (0.0-12.0); Neutrophils # (auto) 7.4 uL; Neutrophils % (auto) 76.1 % (37.0-80.0); Platelet Count (auto) 220 10^3/uL (140-450); Red Blood Cells 3.24 10^6/uL (4.5-5.90); Red Cell Distribution Width 14.3 % (11.8-14.3); White Blood Cell 9.7 10^3/uL (4.4-10.8)
[2017-09-04 05:36] LABS: BUN/Creatinine Ratio 19.6; Calcium 8.2 mg/dL (8.5-10.1); Potassium 4.2 mmol/L (3.5-5.1)
[2017-09-04] MEDS: InsuLIN REG 1unit/0.01ml Soln (100units/ml) SC SCH ×3 (05:51→18:00)
[2017-09-04] MEDS: ACCU-CHEK COMFORT CURVE STRIP VI SCH ×3 (05:51→18:22)
[2017-09-04] MEDS: MULTIPLE VITAMIN TAB PO SCH (10:00)
[2017-09-04] MEDS: PANTOPRAZOLE 40 MG/10 ML VIAL IV SCH (10:00)
[2017-09-04] MEDS: ASPirin-EC 81 mg tab PO SCH (10:00)
[2017-09-04] MEDS: ZINC SULFATE 220 MG CAP PO SCH (10:00)
[2017-09-04] MEDS: ENOXAPARIN SOD 30 MG/0.3 ML SYRINGE SC SCH (10:00)
[2017-09-04] MEDS: ASCORBIC ACID 500 MG TAB PO SCH ×2 (10:00→22:08)
[2017-09-04] MEDS: SODIUM CHLOR 0.9% PF (SALINE LOCK) 10ML VIAL/SYR IV SCH ×2 (10:00→22:08)
[2017-09-04] MEDS: FLUCONAZOLE 200MG/100ML 100 ML IV SCH (10:00)
[2017-09-04] MEDS: METOPROLOL TARTRATE 25 MG TAB PO SCH ×2 (10:00→22:08)
[2017-09-04] MEDS: FUROSEMIDE 100 MG/10ML VIAL IV SCH (11:01)
[2017-09-04] MEDS: TAMSULOSIN HYDROCHLORIDE 0.4 MG CAP PO SCH (18:21)
[2017-09-04] MEDS: ATORVASTATIN 20 MG TAB PO SCH (22:08)
[2017-09-05] VITALS (36 sets, daily range): BP systolic 105–154; BP diastolic 37–80
[2017-09-05] MEDS: ALBUTEROL SULF 2.5 MG/0.5ML(0.5%) NEB SOLN NEB SCH ×4 (00:21→19:06)
[2017-09-05] MEDS: IPRATROPIUM BROM 0.5 MG/2.5ML INH SOL NEB SCH ×4 (00:21→19:07)
[2017-09-05] MEDS: ACCU-CHEK COMFORT CURVE STRIP VI SCH ×4 (00:30→18:00)
[2017-09-05] MEDS: InsuLIN REG 1unit/0.01ml Soln (100units/ml) SC SCH ×4 (00:30→18:00)
[2017-09-05] MEDS: DEXTROSE (50%) 50ML SYRG IV PRN ×2 (02:17→12:45)
[2017-09-05 03:51] LABS: Basophils # (auto) 0 uL; Basophils % (auto) 0.4 % (0.0-2.0); Eosinophils # (auto) 0.4 uL; Eosinophils % (auto) 2.9 % (0.0-7.0); Hematocrit 27.3 % (41.0-53.0); Hemoglobin 9.1 g/dL (13.5-17.5); Lymphocytes # (auto) 0.6 uL; Lymphocytes % (auto) 4.9 % (10.0-50.0); Mean Corpuscular Hemoglobin 29.8 pg (28.0-32.0); Mean Corpuscular Hgb Conc. 33.2 g/dL (32.0-36.0); Mean Corpuscular Volume 89.6 fL (80.0-100.0); Monocytes % (auto) 8.7 % (0.0-12.0); Neutrophils % (auto) 83.1 % (37.0-80.0); Platelet Count (auto) 189 10^3/uL (140-450); Red Blood Cells 3.04 10^6/uL (4.5-5.90); Red Cell Distribution Width 14.3 % (11.8-14.3)
[2017-09-05 04:01] LABS: BUN/Creatinine Ratio 17.7; Calcium 8.3 mg/dL (8.5-10.1); Potassium 4.1 mmol/L (3.5-5.1)
[2017-09-05] MEDS: SODIUM CHLOR 0.9% PF (SALINE LOCK) 10ML VIAL/SYR IV SCH ×2 (10:35→21:20)
[2017-09-05] MEDS: PANTOPRAZOLE 40 MG/10 ML VIAL IV SCH (10:35)
[2017-09-05] MEDS: ENOXAPARIN SOD 30 MG/0.3 ML SYRINGE SC SCH (10:35)
[2017-09-05] MEDS: FUROSEMIDE 100 MG/10ML VIAL IV SCH (10:35)
[2017-09-05] MEDS: FLUCONAZOLE 200MG/100ML 100 ML IV SCH (10:35)
[2017-09-05] MEDS: ZINC SULFATE 220 MG CAP PO SCH (14:43)
[2017-09-05] MEDS: ASPirin-EC 81 mg tab PO SCH (14:44)
[2017-09-05] MEDS: MULTIPLE VITAMIN TAB PO SCH (14:45)
[2017-09-05] MEDS: ASCORBIC ACID 500 MG TAB PO SCH ×2 (14:45→21:20)
[2017-09-05] MEDS: METOPROLOL TARTRATE 25 MG TAB PO SCH ×2 (14:45→21:20)
[2017-09-05] MEDS: TAMSULOSIN HYDROCHLORIDE 0.4 MG CAP PO SCH (18:30)
[2017-09-05] MEDS: ATORVASTATIN 20 MG TAB PO SCH (21:20)
[2017-09-06] MEDS: ACCU-CHEK COMFORT CURVE STRIP VI SCH ×4 (00:17→18:13)
[2017-09-06 04:00] VITALS: BP 139/72
[2017-09-06 05:25] LABS: Basophils # (auto) 0 uL; Basophils % (auto) 0.4 % (0.0-2.0); Eosinophils # (auto) 0.3 uL; Eosinophils % (auto) 2.4 % (0.0-7.0); Hematocrit 28.4 % (41.0-53.0); Hemoglobin 9.7 g/dL (13.5-17.5); Lymphocytes # (auto) 0.6 uL; Lymphocytes % (auto) 5.1 % (10.0-50.0); Mean Corpuscular Hemoglobin 30.6 pg (28.0-32.0); Mean Corpuscular Hgb Conc. 34.3 g/dL (32.0-36.0); Mean Corpuscular Volume 89.3 fL (80.0-100.0); Monocytes # (auto) 1.2 uL; Monocytes % (auto) 10.7 % (0.0-12.0); Neutrophils # (auto) 8.9 uL; Neutrophils % (auto) 81.4 % (37.0-80.0); Platelet Count (auto) 187 10^3/uL (140-450); Red Blood Cells 3.17 10^6/uL (4.5-5.90)
[2017-09-06 05:57] LABS: BUN/Creatinine Ratio 17.8; Calcium 8.6 mg/dL (8.5-10.1); Potassium 3.8 mmol/L (3.5-5.1)
[2017-09-06] MEDS: InsuLIN REG 1unit/0.01ml Soln (100units/ml) SC SCH ×4 (06:00→18:14)
[2017-09-06] MEDS: ALBUTEROL SULF 2.5 MG/0.5ML(0.5%) NEB SOLN NEB SCH ×5 (06:04→23:03)
[2017-09-06] MEDS: IPRATROPIUM BROM 0.5 MG/2.5ML INH SOL NEB SCH ×5 (06:04→23:02)
[2017-09-06 07:30] VITALS: BP 148/76
[2017-09-06] MEDS: FLUCONAZOLE 200MG/100ML 100 ML IV SCH (10:27)
[2017-09-06] MEDS: FUROSEMIDE 100 MG/10ML VIAL IV SCH (10:28)
[2017-09-06] MEDS: PANTOPRAZOLE 40 MG/10 ML VIAL IV SCH (10:28)
[2017-09-06] MEDS: SODIUM CHLOR 0.9% PF (SALINE LOCK) 10ML VIAL/SYR IV SCH ×2 (10:29→21:30)
[2017-09-06] MEDS: MULTIPLE VITAMIN TAB PO SCH (10:29)
[2017-09-06] MEDS: ASPirin-EC 81 mg tab PO SCH (10:29)
[2017-09-06] MEDS: METOPROLOL TARTRATE 25 MG TAB PO SCH ×2 (10:29→21:31)
[2017-09-06] MEDS: ASCORBIC ACID 500 MG TAB PO SCH ×2 (10:29→21:31)
[2017-09-06] MEDS: ZINC SULFATE 220 MG CAP PO SCH (10:29)
[2017-09-06] MEDS: ENOXAPARIN SOD 30 MG/0.3 ML SYRINGE SC SCH (10:30)
[2017-09-06] MEDS: D5W/SOD CHL 0.45% 1,000 ML IV SCH ×2 (10:44→21:31)
[2017-09-06 11:50] VITALS: BP 154/79
[2017-09-06 14:18] LABS: Urine Bacteria NONE SEEN /hpf (None Seen); Urine Blood Negative /uL (Negative); Urine Mucus FEW (None Seen); Urine Specific Gravity 1.008 (1.001-1.035); Urine WBC 5 /hpf (0 - 3)
[2017-09-06 17:00] VITALS: BP 153/66
[2017-09-06] MEDS: TAMSULOSIN HYDROCHLORIDE 0.4 MG CAP PO SCH (18:13)
[2017-09-06] MEDS: ATORVASTATIN 20 MG TAB PO SCH (21:31)
[2017-09-06 22:00] VITALS: BP 187/86
[2017-09-07] VITALS (7 sets, daily range): BP systolic 137–173; BP diastolic 68–80
[2017-09-07] MEDS: InsuLIN REG 1unit/0.01ml Soln (100units/ml) SC SCH ×5 (00:01→23:19)
[2017-09-07] MEDS: ACCU-CHEK COMFORT CURVE STRIP VI SCH ×5 (00:01→23:19)
[2017-09-07] MEDS: ALBUTEROL SULF 2.5 MG/0.5ML(0.5%) NEB SOLN NEB SCH ×3 (05:51→18:33)
[2017-09-07] MEDS: IPRATROPIUM BROM 0.5 MG/2.5ML INH SOL NEB SCH ×3 (05:51→18:33)
[2017-09-07 06:17] LABS: Basophils # (auto) 0 uL; Basophils % (auto) 0.3 % (0.0-2.0); Eosinophils # (auto) 0.3 uL; Eosinophils % (auto) 4.3 % (0.0-7.0); Hemoglobin 9.9 g/dL (13.5-17.5); Lymphocytes # (auto) 0.5 uL; Lymphocytes % (auto) 6.2 % (10.0-50.0); Mean Corpuscular Hemoglobin 31.7 pg (28.0-32.0); Mean Corpuscular Hgb Conc. 34.2 g/dL (32.0-36.0); Mean Corpuscular Volume 92.5 fL (80.0-100.0); Monocytes # (auto) 1.1 uL; Monocytes % (auto) 13.1 % (0.0-12.0); Neutrophils # (auto) 6.1 uL; Neutrophils % (auto) 76.1 % (37.0-80.0); Nucleated Red Blood Cells % 0.1 %; Platelet Count (auto) 189 10^3/uL (140-450); Red Blood Cells 3.14 10^6/uL (4.5-5.90); Red Cell Distribution Width 14.1 % (11.8-14.3)
[2017-09-07 06:37] LABS: Calcium 8.4 mg/dL (8.5-10.1); Potassium 3.7 mmol/L (3.5-5.1)
[2017-09-07 06:41] LABS: BUN/Creatinine Ratio 17.5
[2017-09-07] MEDS: ASCORBIC ACID 500 MG TAB PO SCH ×2 (10:00→21:38)
[2017-09-07] MEDS: FLUCONAZOLE 200MG/100ML 100 ML IV SCH (10:39)
[2017-09-07] MEDS: PANTOPRAZOLE 40 MG/10 ML VIAL IV SCH (10:40)
[2017-09-07] MEDS: SOD CHL 0.45% 1,000 ML IV SCH ×2 (10:40→23:00)
[2017-09-07] MEDS: ZINC SULFATE 220 MG CAP PO SCH (10:41)
[2017-09-07] MEDS: SODIUM CHLOR 0.9% PF (SALINE LOCK) 10ML VIAL/SYR IV SCH ×2 (10:41→21:40)
[2017-09-07] MEDS: MULTIPLE VITAMIN TAB PO SCH (10:42)
[2017-09-07] MEDS: ASPirin-EC 81 mg tab PO SCH (10:42)
[2017-09-07] MEDS: amLODIPine BESYLATE 5 MG TAB PO SCH (10:42)
[2017-09-07] MEDS: METOPROLOL TARTRATE 25 MG TAB PO SCH ×2 (10:43→21:39)
[2017-09-07] MEDS: ENOXAPARIN SOD 30 MG/0.3 ML SYRINGE SC SCH (10:45)
[2017-09-07] MEDS: TAMSULOSIN HYDROCHLORIDE 0.4 MG CAP PO SCH (17:47)
[2017-09-07] MEDS: ATORVASTATIN 20 MG TAB PO SCH (21:38)
[2017-09-08] VITALS (7 sets, daily range): BP systolic 131–157; BP diastolic 61–79
[2017-09-08] MEDS: ACCU-CHEK COMFORT CURVE STRIP VI SCH ×4 (06:04→23:48)
[2017-09-08] MEDS: InsuLIN REG 1unit/0.01ml Soln (100units/ml) SC SCH ×4 (06:05→23:48)
[2017-09-08] MEDS: IPRATROPIUM BROM 0.5 MG/2.5ML INH SOL NEB SCH ×4 (07:55→19:09)
[2017-09-08] MEDS: ALBUTEROL SULF 2.5 MG/0.5ML(0.5%) NEB SOLN NEB SCH ×4 (07:55→19:09)
[2017-09-08] MEDS ORDERED: ADENOSINE 77 MG in GIVE UN-DILUTED 0 ML IV ONE (10:00)
[2017-09-08] MEDS ORDERED: REGADENOSON 0.4 MG/5 ML SYRG IV ONE (10:30)
[2017-09-08] MEDS: ZINC SULFATE 220 MG CAP PO SCH (11:48)
[2017-09-08] MEDS: ASPirin-EC 81 mg tab PO SCH (11:48)
[2017-09-08] MEDS: MULTIPLE VITAMIN TAB PO SCH (11:48)
[2017-09-08] MEDS: ENOXAPARIN SOD 30 MG/0.3 ML SYRINGE SC SCH (11:48)
[2017-09-08] MEDS: ASCORBIC ACID 500 MG TAB PO SCH ×2 (11:48→22:32)
[2017-09-08] MEDS: PANTOPRAZOLE 40 MG TAB PO SCH (11:48)
[2017-09-08] MEDS: FLUCONAZOLE 200MG/100ML 100 ML IV SCH (11:48)
[2017-09-08] MEDS: amLODIPine BESYLATE 5 MG TAB PO SCH (11:49)
[2017-09-08] MEDS: ACETAMINOPHEN 325 MG TAB PO PRN (11:49)
[2017-09-08] MEDS: SODIUM CHLOR 0.9% PF (SALINE LOCK) 10ML VIAL/SYR IV SCH ×2 (11:50→22:33)
[2017-09-08] MEDS: METOPROLOL TARTRATE 25 MG TAB PO SCH ×2 (11:50→22:33)
[2017-09-08] MEDS: TAMSULOSIN HYDROCHLORIDE 0.4 MG CAP PO SCH (17:38)
[2017-09-08] MEDS: SOD CHL 0.45% 1,000 ML IV SCH (17:40)
[2017-09-08] MEDS: ATORVASTATIN 20 MG TAB PO SCH (22:33)
[2017-09-09] MEDS: IPRATROPIUM BROM 0.5 MG/2.5ML INH SOL NEB SCH ×4 (00:05→18:40)
[2017-09-09] MEDS: ALBUTEROL SULF 2.5 MG/0.5ML(0.5%) NEB SOLN NEB SCH ×4 (00:05→18:40)
[2017-09-09] MEDS: SOD CHL 0.45% 1,000 ML IV SCH ×2 (01:19→16:28)
[2017-09-09 05:00] VITALS: BP 143/73
[2017-09-09] MEDS: InsuLIN REG 1unit/0.01ml Soln (100units/ml) SC SCH ×4 (05:30→23:50)
[2017-09-09] MEDS: ACCU-CHEK COMFORT CURVE STRIP VI SCH ×4 (05:30→23:50)
[2017-09-09 06:04] LABS: Basophils # (auto) 0 uL; Basophils % (auto) 0.5 % (0.0-2.0); Eosinophils # (auto) 0.4 uL; Eosinophils % (auto) 5.2 % (0.0-7.0); Hematocrit 25.8 % (41.0-53.0); Hemoglobin 8.7 g/dL (13.5-17.5); Lymphocytes # (auto) 0.7 uL; Lymphocytes % (auto) 8.9 % (10.0-50.0); Mean Corpuscular Hemoglobin 31.4 pg (28.0-32.0); Mean Corpuscular Volume 92.5 fL (80.0-100.0); Monocytes # (auto) 0.9 uL; Monocytes % (auto) 12.3 % (0.0-12.0); Neutrophils # (auto) 5.5 uL; Neutrophils % (auto) 73.1 % (37.0-80.0); Platelet Count (auto) 212 10^3/uL (140-450); Red Blood Cells 2.78 10^6/uL (4.5-5.90); White Blood Cell 7.6 10^3/uL (4.4-10.8)
[2017-09-09 06:09] LABS: Albumin 2.1 g/dL (3.4-5.0); Calcium 8.1 mg/dL (8.5-10.1); Potassium 3.5 mmol/L (3.5-5.1)
[2017-09-09 06:11] LABS: BUN/Creatinine Ratio 15.9
[2017-09-09 06:14] LABS: Bilirubin, Total 0.5 mg/dL (0.2-1.0)
[2017-09-09 07:42] VITALS: BP 143/69
[2017-09-09] MEDS: ZINC SULFATE 220 MG CAP PO SCH (09:25)
[2017-09-09] MEDS: PANTOPRAZOLE 40 MG TAB PO SCH (09:25)
[2017-09-09] MEDS: ASCORBIC ACID 500 MG TAB PO SCH ×2 (09:25→21:51)
[2017-09-09] MEDS: MULTIPLE VITAMIN TAB PO SCH (09:25)
[2017-09-09] MEDS: ASPirin-EC 81 mg tab PO SCH (09:26)
[2017-09-09] MEDS: amLODIPine BESYLATE 5 MG TAB PO SCH (09:26)
[2017-09-09] MEDS: SODIUM CHLOR 0.9% PF (SALINE LOCK) 10ML VIAL/SYR IV SCH ×2 (09:26→21:52)
[2017-09-09] MEDS: METOPROLOL TARTRATE 25 MG TAB PO SCH ×2 (09:26→21:52)
[2017-09-09 11:19] VITALS: BP 114/69
[2017-09-09] MEDS: ENOXAPARIN SOD 30 MG/0.3 ML SYRINGE SC SCH (11:51)
[2017-09-09 16:25] VITALS: BP 156/73
[2017-09-09] MEDS: TAMSULOSIN HYDROCHLORIDE 0.4 MG CAP PO SCH (17:51)
[2017-09-09 21:50] VITALS: BP 152/100
[2017-09-09] MEDS: ATORVASTATIN 20 MG TAB PO SCH (21:51)
[2017-09-10] MEDS: ALBUTEROL SULF 2.5 MG/0.5ML(0.5%) NEB SOLN NEB SCH ×4 (00:33→19:51)
[2017-09-10] MEDS: IPRATROPIUM BROM 0.5 MG/2.5ML INH SOL NEB SCH ×4 (00:33→19:51)
[2017-09-10] MEDS: SOD CHL 0.45% 1,000 ML IV SCH ×2 (03:42→17:46)
[2017-09-10 05:00] VITALS: BP 149/76
[2017-09-10 05:33] LABS: Basophils # (auto) 0.1 uL; Basophils % (auto) 0.8 % (0.0-2.0); Eosinophils # (auto) 0.5 uL; Eosinophils % (auto) 7.4 % (0.0-7.0); Hemoglobin 8.8 g/dL (13.5-17.5); Lymphocytes # (auto) 0.6 uL; Lymphocytes % (auto) 9.2 % (10.0-50.0); Mean Corpuscular Hemoglobin 30.5 pg (28.0-32.0); Mean Corpuscular Volume 89.8 fL (80.0-100.0); Monocytes # (auto) 0.9 uL; Monocytes % (auto) 12.7 % (0.0-12.0); Neutrophils # (auto) 4.8 uL; Neutrophils % (auto) 69.9 % (37.0-80.0); Platelet Count (auto) 227 10^3/uL (140-450); White Blood Cell 6.8 10^3/uL (4.4-10.8)
[2017-09-10] MEDS: InsuLIN REG 1unit/0.01ml Soln (100units/ml) SC SCH ×3 (05:40→17:47)
[2017-09-10] MEDS: ACCU-CHEK COMFORT CURVE STRIP VI SCH ×3 (05:40→17:47)
[2017-09-10 05:46] LABS: Potassium 3.5 mmol/L (3.5-5.1)
[2017-09-10 05:50] LABS: Calcium 8.1 mg/dL (8.5-10.1)
[2017-09-10 08:03] VITALS: BP 128/68
[2017-09-10] MEDS: ASPirin-EC 81 mg tab PO SCH (10:17)
[2017-09-10] MEDS: PANTOPRAZOLE 40 MG TAB PO SCH (10:17)
[2017-09-10] MEDS: ASCORBIC ACID 500 MG TAB PO SCH ×2 (10:17→22:31)
[2017-09-10] MEDS: ZINC SULFATE 220 MG CAP PO SCH (10:17)
[2017-09-10] MEDS: MULTIPLE VITAMIN TAB PO SCH (10:17)
[2017-09-10] MEDS: ENOXAPARIN SOD 30 MG/0.3 ML SYRINGE SC SCH (10:17)
[2017-09-10] MEDS: SODIUM CHLOR 0.9% PF (SALINE LOCK) 10ML VIAL/SYR IV SCH ×2 (10:18→22:35)
[2017-09-10] MEDS: amLODIPine BESYLATE 5 MG TAB PO SCH (10:18)
[2017-09-10] MEDS: METOPROLOL TARTRATE 25 MG TAB PO SCH ×2 (10:18→22:30)
[2017-09-10 12:52] VITALS: BP 141/65
[2017-09-10 16:53] VITALS: BP 134/67
[2017-09-10] MEDS: TAMSULOSIN HYDROCHLORIDE 0.4 MG CAP PO SCH (17:46)
[2017-09-10 21:32] VITALS: BP 151/79
[2017-09-10] MEDS: ATORVASTATIN 20 MG TAB PO SCH (22:30)
[2017-09-11 04:28] VITALS: BP 149/75
[2017-09-11] MEDS: InsuLIN REG 1unit/0.01ml Soln (100units/ml) SC SCH ×4 (06:00→18:07)
[2017-09-11] MEDS: ACCU-CHEK COMFORT CURVE STRIP VI SCH ×4 (06:00→18:07)
[2017-09-11 06:06] LABS: Basophils # (auto) 0.1 uL; Basophils % (auto) 0.8 % (0.0-2.0); Eosinophils # (auto) 0.6 uL; Hematocrit 26.6 % (41.0-53.0); Hemoglobin 8.9 g/dL (13.5-17.5); Lymphocytes # (auto) 0.7 uL; Mean Corpuscular Hemoglobin 30.1 pg (28.0-32.0); Mean Corpuscular Hgb Conc. 33.6 g/dL (32.0-36.0); Mean Corpuscular Volume 89.6 fL (80.0-100.0); Monocytes # (auto) 0.8 uL; Monocytes % (auto) 11.7 % (0.0-12.0); Neutrophils # (auto) 4.6 uL; Neutrophils % (auto) 68.5 % (37.0-80.0); Nucleated Red Blood Cells % 0.1 %; Platelet Count (auto) 235 10^3/uL (140-450); Red Blood Cells 2.96 10^6/uL (4.5-5.90); Red Cell Distribution Width 14.3 % (11.8-14.3); White Blood Cell 6.7 10^3/uL (4.4-10.8)
[2017-09-11] MEDS: SOD CHL 0.45% 1,000 ML IV SCH ×2 (06:09→21:59)
[2017-09-11 06:14] LABS: BUN/Creatinine Ratio 14.2; Calcium 8.3 mg/dL (8.5-10.1); Potassium 3.4 mmol/L (3.5-5.1)
[2017-09-11] MEDS: IPRATROPIUM BROM 0.5 MG/2.5ML INH SOL NEB SCH ×3 (06:38→18:52)
[2017-09-11] MEDS: ALBUTEROL SULF 2.5 MG/0.5ML(0.5%) NEB SOLN NEB SCH ×3 (06:38→18:52)
[2017-09-11 09:42] VITALS: BP 157/74
[2017-09-11] MEDS: SODIUM CHLOR 0.9% PF (SALINE LOCK) 10ML VIAL/SYR IV SCH ×2 (09:43→22:00)
[2017-09-11] MEDS: ASPirin-EC 81 mg tab PO SCH (09:44)
[2017-09-11] MEDS: ENOXAPARIN SOD 30 MG/0.3 ML SYRINGE SC SCH (09:44)
[2017-09-11] MEDS: ASCORBIC ACID 500 MG TAB PO SCH ×2 (09:44→22:00)
[2017-09-11] MEDS: METOPROLOL TARTRATE 25 MG TAB PO SCH ×2 (09:44→22:00)
[2017-09-11] MEDS: MULTIPLE VITAMIN TAB PO SCH (09:44)
[2017-09-11] MEDS: ZINC SULFATE 220 MG CAP PO SCH (09:44)
[2017-09-11] MEDS: PANTOPRAZOLE 40 MG TAB PO SCH (09:44)
[2017-09-11] MEDS: amLODIPine BESYLATE 5 MG TAB PO SCH (09:45)
[2017-09-11 09:53] VITALS: BP 157/74
[2017-09-11 13:41] VITALS: BP 158/71
[2017-09-11 17:00] VITALS: BP 151/71
[2017-09-11] MEDS: TAMSULOSIN HYDROCHLORIDE 0.4 MG CAP PO SCH (18:06)
[2017-09-11 22:12] VITALS: BP 148/72
[2017-09-12] MEDS: ALBUTEROL SULF 2.5 MG/0.5ML(0.5%) NEB SOLN NEB SCH
[2017-09-12] MEDS: IPRATROPIUM BROM 0.5 MG/2.5ML INH SOL NEB SCH
[2017-09-12] MEDS: InsuLIN REG 1unit/0.01ml Soln (100units/ml) SC SCH ×4 (01:06→18:00)
[2017-09-12] MEDS: ACCU-CHEK COMFORT CURVE STRIP VI SCH ×4 (01:08→18:21)
[2017-09-12 05:00] VITALS: BP 135/68
[2017-09-12 05:51] LABS: Basophils # (auto) 0 uL; Basophils % (auto) 0.6 % (0.0-2.0); Eosinophils # (auto) 0.5 uL; Eosinophils % (auto) 6.4 % (0.0-7.0); Hematocrit 26.2 % (41.0-53.0); Hemoglobin 8.9 g/dL (13.5-17.5); Lymphocytes # (auto) 0.6 uL; Lymphocytes % (auto) 7.9 % (10.0-50.0); Mean Corpuscular Hemoglobin 31.2 pg (28.0-32.0); Mean Corpuscular Hgb Conc. 33.7 g/dL (32.0-36.0); Mean Corpuscular Volume 92.6 fL (80.0-100.0); Monocytes # (auto) 0.7 uL; Neutrophils # (auto) 5.6 uL; Neutrophils % (auto) 75.1 % (37.0-80.0); Platelet Count (auto) 246 10^3/uL (140-450); Red Blood Cells 2.83 10^6/uL (4.5-5.90); Red Cell Distribution Width 14.1 % (11.8-14.3); White Blood Cell 7.4 10^3/uL (4.4-10.8)
[2017-09-12 06:22] LABS: BUN/Creatinine Ratio 13.7; Calcium 8.3 mg/dL (8.5-10.1); Potassium 3.6 mmol/L (3.5-5.1)
[2017-09-12] MEDS: ENOXAPARIN SOD 30 MG/0.3 ML SYRINGE SC SCH ×2 (07:58→13:41)
[2017-09-12 08:04] VITALS: BP 143/68
[2017-09-12] MEDS: ZINC SULFATE 220 MG CAP PO SCH (09:17)
[2017-09-12] MEDS: MULTIPLE VITAMIN TAB PO SCH (09:17)
[2017-09-12] MEDS: PANTOPRAZOLE 40 MG TAB PO SCH (09:18)
[2017-09-12] MEDS: SODIUM CHLOR 0.9% PF (SALINE LOCK) 10ML VIAL/SYR IV SCH ×2 (09:19→19:45)
[2017-09-12] MEDS: ASCORBIC ACID 500 MG TAB PO SCH ×2 (09:19→19:44)
[2017-09-12] MEDS: amLODIPine BESYLATE 5 MG TAB PO SCH (09:19)
[2017-09-12] MEDS: ASPirin-EC 81 mg tab PO SCH (09:19)
[2017-09-12] MEDS: METOPROLOL TARTRATE 25 MG TAB PO SCH ×3 (09:20→22:00)
[2017-09-12] MEDS: SOD CHL 0.45% 1,000 ML IV SCH ×2 (09:30→22:50)
[2017-09-12 11:37] VITALS: BP 122/53
[2017-09-12 16:09] VITALS: BP 132/65
[2017-09-12] MEDS: TAMSULOSIN HYDROCHLORIDE 0.4 MG CAP PO SCH (18:42)
[2017-09-12 22:00] VITALS: BP 121/61
[2017-09-13 05:00] VITALS: BP 129/61
[2017-09-13] MEDS: InsuLIN REG 1unit/0.01ml Soln (100units/ml) SC SCH ×4 (06:00→18:00)
[2017-09-13] MEDS: ACCU-CHEK COMFORT CURVE STRIP VI SCH ×4 (06:00→18:00)
[2017-09-13 06:03] LABS: Basophils # (auto) 0 uL; Basophils % (auto) 0.5 % (0.0-2.0); Eosinophils # (auto) 0.3 uL; Eosinophils % (auto) 3.8 % (0.0-7.0); Hematocrit 26.2 % (41.0-53.0); Hemoglobin 8.8 g/dL (13.5-17.5); Lymphocytes # (auto) 0.6 uL; Mean Corpuscular Hemoglobin 31.2 pg (28.0-32.0); Mean Corpuscular Hgb Conc. 33.5 g/dL (32.0-36.0); Monocytes # (auto) 0.7 uL; Neutrophils # (auto) 5.5 uL; Neutrophils % (auto) 77.7 % (37.0-80.0); Nucleated Red Blood Cells % 0.1 %; Platelet Count (auto) 242 10^3/uL (140-450); Red Blood Cells 2.81 10^6/uL (4.5-5.90); Red Cell Distribution Width 14.4 % (11.8-14.3); White Blood Cell 7.1 10^3/uL (4.4-10.8)
[2017-09-13 06:15] LABS: BUN/Creatinine Ratio 12.4; Calcium 8.6 mg/dL (8.5-10.1); Potassium 3.8 mmol/L (3.5-5.1)
[2017-09-13 09:00] VITALS: BP 93/45
[2017-09-13] MEDS: ZINC SULFATE 220 MG CAP PO SCH (10:03)
[2017-09-13] MEDS: SODIUM CHLOR 0.9% PF (SALINE LOCK) 10ML VIAL/SYR IV SCH ×2 (10:03→21:33)
[2017-09-13] MEDS: MULTIPLE VITAMIN TAB PO SCH (10:03)
[2017-09-13] MEDS: ASPirin-EC 81 mg tab PO SCH (10:03)
[2017-09-13] MEDS: PANTOPRAZOLE 40 MG TAB PO SCH (10:03)
[2017-09-13] MEDS: amLODIPine BESYLATE 5 MG TAB PO SCH (10:04)
[2017-09-13] MEDS: ENOXAPARIN SOD 30 MG/0.3 ML SYRINGE SC SCH (10:04)
[2017-09-13] MEDS: ASCORBIC ACID 500 MG TAB PO SCH ×2 (10:04→21:33)
[2017-09-13] MEDS: SOD CHL 0.45% 1,000 ML IV SCH (12:10)
[2017-09-13 13:00] VITALS: BP 133/76
[2017-09-13 16:33] VITALS: BP 123/67
[2017-09-13] MEDS: TAMSULOSIN HYDROCHLORIDE 0.4 MG CAP PO SCH (18:00)
[2017-09-13] MEDS: ACETAMINOPHEN 325 MG TAB PO PRN (21:33)
[2017-09-13] MEDS: METOPROLOL TARTRATE 25 MG TAB PO SCH (21:34)
[2017-09-13 21:57] VITALS: BP 138/71
[2017-09-14] MEDS: InsuLIN REG 1unit/0.01ml Soln (100units/ml) SC SCH ×3 (01:06→12:00)
[2017-09-14] MEDS: ACCU-CHEK COMFORT CURVE STRIP VI SCH ×3 (01:06→14:26)
[2017-09-14] MEDS: SOD CHL 0.45% 1,000 ML IV SCH ×2 (01:38→16:46)
[2017-09-14 05:25] VITALS: BP 132/66
[2017-09-14 05:37] LABS: Basophils # (auto) 0 uL; Basophils % (auto) 0.6 % (0.0-2.0); Eosinophils # (auto) 0.2 uL; Eosinophils % (auto) 2.2 % (0.0-7.0); Hematocrit 26.2 % (41.0-53.0); Hemoglobin 8.6 g/dL (13.5-17.5); Lymphocytes # (auto) 0.5 uL; Lymphocytes % (auto) 6.7 % (10.0-50.0); Mean Corpuscular Hemoglobin 30.7 pg (28.0-32.0); Mean Corpuscular Hgb Conc. 32.8 g/dL (32.0-36.0); Mean Corpuscular Volume 93.4 fL (80.0-100.0); Monocytes # (auto) 0.6 uL; Monocytes % (auto) 8.2 % (0.0-12.0); Neutrophils # (auto) 5.9 uL; Neutrophils % (auto) 82.3 % (37.0-80.0); Nucleated Red Blood Cells % 0.1 %; Platelet Count (auto) 240 10^3/uL (140-450); Red Cell Distribution Width 14.8 % (11.8-14.3); White Blood Cell 7.2 10^3/uL (4.4-10.8)
[2017-09-14 06:03] LABS: Albumin 2.5 g/dL (3.4-5.0); Bilirubin, Total 0.4 mg/dL (0.2-1.0); Calcium 8.5 mg/dL (8.5-10.1); Potassium 4.1 mmol/L (3.5-5.1); Total Protein 6.4 g/dL (6.4-8.2)
[2017-09-14 09:00] VITALS: BP 133/65
[2017-09-14] MEDS: amLODIPine BESYLATE 5 MG TAB PO SCH (09:20)
[2017-09-14] MEDS: PANTOPRAZOLE 40 MG TAB PO SCH (09:20)
[2017-09-14] MEDS: ASPirin-EC 81 mg tab PO SCH (09:20)
[2017-09-14] MEDS: MULTIPLE VITAMIN TAB PO SCH (09:20)
[2017-09-14] MEDS: ZINC SULFATE 220 MG CAP PO SCH (09:20)
[2017-09-14] MEDS: ASCORBIC ACID 500 MG TAB PO SCH (09:20)
[2017-09-14] MEDS: METOPROLOL TARTRATE 25 MG TAB PO SCH (09:21)
[2017-09-14] MEDS: ENOXAPARIN SOD 30 MG/0.3 ML SYRINGE SC SCH (09:21)
[2017-09-14] MEDS: SODIUM CHLOR 0.9% PF (SALINE LOCK) 10ML VIAL/SYR IV SCH (10:00)
[2017-09-14 13:00] VITALS: BP 131/64
[2017-09-14 16:10] VITALS: BP 136/67
== END 2017-09-14 17:15 | disposition hospice, home (50) | DRG 480 ==
LOC: EDBD 05:18 → ER 05:23 → TELE 05:24 → TELE-CENTR 20:20 → ICU WEST 08-20 10:10 → TELE-WESTW 08-24 10:38 → WEST WING 08-25 17:43 → TELE-WESTW 08-27 08:05 → ICU WEST 08-30 15:38 → DOU IN ICU 09-05 18:44 → TELE-CENTR 09-06 14:51
PROVIDERS: ADMIT Internal Medicine; ATTEND Internal Medicine
PROC: 0QS604Z Reposition Right Upper Femur with Internal Fixation Device, Open Approach (ICD-10-PCS; 2017-08-16)
PROC: 5A1945Z Respiratory Ventilation, 24-96 Consecutive Hours (ICD-10-PCS; 2017-08-20)
PROC: 0BH17EZ Insertion of Endotracheal Airway into Trachea, Via Natural or Artificial Opening (ICD-10-PCS; 2017-08-20)
PROC: 5A1955Z Respiratory Ventilation, Greater than 96 Consecutive Hours (ICD-10-PCS; principal; 2017-08-30)
PROC: 0BH17EZ Insertion of Endotracheal Airway into Trachea, Via Natural or Artificial Opening (ICD-10-PCS; 2017-08-30)
PROC: 5A09357 Assistance with Respiratory Ventilation, Less than 24 Consecutive Hours, Continuous Positive Airway Pressure (ICD-10-PCS; 2017-09-05)
PROC: 5A09357 Assistance with Respiratory Ventilation, Less than 24 Consecutive Hours, Continuous Positive Airway Pressure (ICD-10-PCS; 2017-09-08)
DX: S72.141A Displaced intertrochanteric fracture of right femur, initial encounter for closed fracture (principal); N17.0 Acute kidney failure with tubular necrosis; J96.21 Acute and chronic respiratory failure with hypoxia; G93.41 Metabolic encephalopathy; I50.43 Acute on chronic combined systolic (congestive) and diastolic (congestive) heart failure; A41.9 Sepsis, unspecified organism; E44.0 Moderate protein-calorie malnutrition; J18.9 Pneumonia, unspecified organism; I46.9 Cardiac arrest, cause unspecified; J96.22 Acute and chronic respiratory failure with hypercapnia; J44.0 Chronic obstructive pulmonary disease with (acute) lower respiratory infection; E87.0 Hyperosmolality and hypernatremia; E87.1 Hypo-osmolality and hyponatremia; E87.2 Acidosis; D62 Acute posthemorrhagic anemia; I13.0 Hypertensive heart and chronic kidney disease with heart failure and stage 1 through stage 4 chronic kidney disease, or unspecified chronic kidney disease; J98.11 Atelectasis; E11.21 Type 2 diabetes mellitus with diabetic nephropathy; E11.65 Type 2 diabetes mellitus with hyperglycemia; B37.9 Candidiasis, unspecified; B96.89 Other specified bacterial agents as the cause of diseases classified elsewhere; D63.8 Anemia in other chronic diseases classified elsewhere; E11.22 Type 2 diabetes mellitus with diabetic chronic kidney disease; E66.01 Morbid (severe) obesity due to excess calories; N30.80 Other cystitis without hematuria; K80.20 Calculus of gallbladder without cholecystitis without obstruction; K40.90 Unilateral inguinal hernia, without obstruction or gangrene, not specified as recurrent; N18.2 Chronic kidney disease, stage 2 (mild); N40.1 Benign prostatic hyperplasia with lower urinary tract symptoms; Z79.82 Long term (current) use of aspirin; Z79.899 Other long term (current) drug therapy; Z82.49 Family history of ischemic heart disease and other diseases of the circulatory system; Z85.038 Personal history of other malignant neoplasm of large intestine; Z83.3 Family history of diabetes mellitus; Z87.891 Personal history of nicotine dependence; Z90.49 Acquired absence of other specified parts of digestive tract; Z90.79 Acquired absence of other genital organ(s); S72.001A Fracture of unspecified part of neck of right femur, initial encounter for closed fracture; W18.39XA Other fall on same level, initial encounter; Y93.89 Activity, other specified; Y92.89 Other specified places as the place of occurrence of the external cause; Y99.8 Other external cause status; Z68.30 Body mass index [BMI] 30.0-30.9, adult
CPT/HCPCS: 36415; 36569; 36600; 51702; 70450; 71045; 73502; 73700; 74176; 76000; 80048; 80053; 80202; 81001; 82040; 82570; 82805; 82962; 83036; 83605; 83735; 83880; 84100; 84300; 84478; 84484; 85025; 85379; 85610; 85730; 86850; 86900; 86901; 87040; 87070; 87077; 87081; 87086; 87088; 87186; 87205; 93005; 93017; 93306; 93970; 94002; 94003; 94640; 94660; 96372; 96374; 96375; 97110; 97163; 97530; 99291; A4565; C1713; C9113; J0153; J0330; J0690; J1450; J1815; J1956; J2250; J2270; J2405; J2543; J2704; J3490; J7042; J7060